=== PATIENT | male | born 1975 | race Caucasian/White ===

== ENCOUNTER 2017-04-29 11:20 | Inpatient (IN) | payer OTHER ==
[2017-04-29 11:27] VITALS: BMI 24.6
--- NOTE | 2017-04-29 14:05 | HP ---
Admission [facility] Chief Complaint: 41 yr old man with hx of bipolar d/o, depression, PTSD, seizure d/o(tonic clonic , last seizure 1 month ago), etoh and cocaine use disorder presents for rehabilitation. Allergies/Adverse Reactions: Allergies Allergy/AdvReac Type Severity Reaction Status Date / Time Penicillins AdvReac Severe Swelling Verified 04/29/17 13:22 History of Present Illness: Wants to change his life around, has a 15-yr old son in [place] who he came to visit. his son recently had a child as well. was recently detoxed in [facility] but relapsed once discharged, last alcohol drink was 2AM Thursday morning. had epilepsy as a child, was taken off phenobarbital at that age. seizures started again at age 39, started on gabapentin. has seizures on and off alcohol, no relation to withdrawal. contracted Hep C through intercourse, several years ago, has not been able to receive treatment because he needed to stay sober at least 6mo to receive treatment Exam Limitations: No Limitations - Ebola screening Have you traveled outside of the country in the last 21 days: No Have you had contact with anyone from an Ebola affected area: No Have you been sick,other than usual withdrawal symptoms: No Do you have a fever: No - Review of Systems Constitutional: Unexplained wgt Loss (lost 70lbs during the last year) EENT: reports: Dental Problems, Other (jaw pain due b/l factures). denies: Difficulty Swallowing Respiratory: reports: Productive cough (chronic). denies: Shortness of Breath, Wheezing Cardiac: reports: No Symptoms Reported. denies: Chest Pain, Lightheadedness, Palpitations GI: reports: Diarrhea (last episode yesterday, nonbloody). denies: Vomiting : reports: No Symptoms Reported Musculoskeletal: reports: No Symptoms Reported Integumentary: reports: Erythema Neuro: reports: Seizure Hematology: reports: No Symptoms Reported Psychiatric: reports: Judgement Intact, Orientated x3, Depressed Patient History - Patient Medical History Hx Asthma: No Hx Chronic Obstructive Pulmonary Disease (COPD): No Hx Cardiac Disorders: No Hx Hypertension: No Hx Seizures: Yes (tonic clonic) Hx Diabetes: No Hx Gastrointestinal Disorders: No Hx Genitourinary Disorders: No Hx Sexually Transmitted Disorders: Yes (CHLAMYDIA twice AT AGE 19, says he was treated) Hx Renal Disease (ESRD): No Hx Hepatitis C: Yes Hx Depression: Yes Hx Suicide Attempt: No Hx Schizophrenia: No - Patient Surgical History Past Surgical History: Yes Hx Neurologic Surgery: No Hx Cataract Extraction: No Hx Cardiac Surgery: No Hx Lung Surgery: No Hx Breast Surgery: No Hx Breast Biopsy: No Hx Abdominal Surgery: No Hx Appendectomy: No Hx Cholecystectomy: No Hx Genitourinary Surgery: No Hx Section: No Hx Orthopedic Surgery: Yes (DONATED RT KIDNEY) Anesthesia Reaction: No - PPD History Previous Implant?: Yes Documented Results: Negative w/o proof Implanted On Prior [facility] Admission?: No - Smoking Cessation Smoking history: Current every day smoker Have you smoked in the past 12 months: Yes Aproximately how many cigarettes per day: 50 Hx Chewing Tobacco Use: No Initiated information on smoking cessation: Yes 'Breaking Loose' booklet given: 04/29/17 - Substance & Tx. History Hx Alcohol Use: Yes Hx Substance Use: Yes Substance Use Type: Alcohol, Cocaine Hx Substance Use Treatment: Yes ([facility]) - Substances Abused Alcohol Route: Oral Frequency: Daily Amount used: 1/2 gal of vodka Age of first use: 13 Date of Last Use: 04/29/17 Cocaine Route: Inhalation Frequency: 1-3 times last 30 days Amount used: 1 bag Age of first use: 39 Date of Last Use: 04/28/17 Marijuana/Hashish Route: Smoking Frequency: 1-2 times per week Amount used: $30 Age of first use: 13 Date of Last Use: 04/22/17 Family Disease History - Family Disease History Family Disease History: Diabetes: Grandparent (maternal grandmother), Other: Father (alcohol use), Mother (alcohol use), Son (15yr with polysubstance use) Other Family History: aunts and uncles on both sides of family with alcohol use Admission Physical Exam [facility] - Vital Signs Vital Signs: Vital Signs - 24 hr 04/29/17 11:26 Temperature 98.7 F Pulse Rate 73 Respiratory 18 Rate Blood Pressure 111/63 - Physical General Appearance: Yes: No Apparent Distress HEENTM: Yes: EOMI, Normocephalic, Other (left eye nonreactive to light has 250 vision(legally blind) but is reactive consensually, right eye reactive to light normally. poor dentition and oral hygiene). No: Pharyngeal Erythemia, Tonsilar Exudate, Thrush Respiratory: Yes: Chest Non-Tender, Lungs Clear Neck: Yes: No masses,lesions,Nodules Breast: Yes: Breast Exam Deferred Cardiology: Yes: Regular Rhythm, Regular Rate, S1, S2 Abdominal: Yes: Normal Bowel Sounds, Non Tender, Soft Genitourinary: No: Burning, Hematuria, Penial Discharge Back: No: CVA Tenderness Musculoskeletal: Yes: Gait Steady Extremities: Yes: Other (b/l 1+ pitting edema in lower legs). No: Calf Tenderness Neurological: Yes: Fully Oriented, Motor Strength 5/5 Integumentary: Yes: Other (right hand with healing abrasions in 3rd digit knuckle) - Diagnostic (1) Alcohol dependence Current Visit: Yes Status: Acute (2) Cocaine abuse Current Visit: Yes Status: Acute (3) Nicotine dependence Current Visit: Yes Status: Acute (4) Epilepsy Current Visit: Yes Status: Acute Cleared for Admission [facility] - Detox or Rehab Claeared for Rehab Admission: Yes [facility] Breath Alcohol Content Breath Alcohol Content: 0.020 Urine Drug Screen - Results Drug Screen Negative: No Urine Drug Screen Results: MAURO-Cocaine, BZO-Benzodiazepines Inpatient Rehab Admission - Initial Determination Are CD services needed?: Yes Free of communicable disease: Yes Not in need of hospitalization: Yes - Rehab Admission Criteria Previous failed treatment: Yes Poor recovery environment: Yes Comorbidities: Yes Lacks judgement: No Patient is meeting Inpatient Rehab admission criteria:: Yes
[2017-04-29] MEDS ORDERED: P-EPHED 60MG/TRIPROLIDI 2.5MG TABLET PO PRN (14:11)
[2017-04-29] MEDS ORDERED: ACETAMINOPHEN 325 MG TABLET (FP) PO PRN (14:11)
[2017-04-29] MEDS ORDERED: MAG HYDROX/AL HYDROX/SIMETH 30 ML UNIT-DOSE CUP PO PRN (14:11)
[2017-04-29] MEDS ORDERED: MAGNESIUM CITRATE 300 ML BOTTLE PO PRN (14:11)
[2017-04-29 17:09] LABS: HEMATOCRIT 34.6 % (35.4-49); HEMOGLOBIN 11.5 GM/dL (11.7-16.9); MCH 32.7 pg (25.7-33.7); MCHC 33.2 g/dl (32.0-35.9); MEAN CELL VOLUME 98.4 fl (80-96); MEAN PLT VOLUME 7.9 fl (7.5-11.1); PLATELET COUNT 376 K/MM3 (134-434); RBC 3.52 M/mm3 (4.00-5.60); RDW 13.9 % (11.9-15.9); WHITE BLOOD COUNT 7.9 K/mm3 (4.0-10.0)
[2017-04-29 17:21] LABS: URINE APPEARANCE SLCLOUDY; URINE BILIRUBIN NEGATIVE (NEGATIVE); URINE BLOOD 2+ (NEGATIVE); URINE COLOR AMBER; URINE GLUCOSE (UA) NEGATIVE (NEGATIVE); URINE KETONE NEGATIVE (NEGATIVE); URINE LEUK ESTERASE TRACE (NEGATIVE); URINE NITRITE NEGATIVE (NEGATIVE); URINE UROBILINOGEN NEGATIVE mg/dL (0.2-1.0)
[2017-04-29 17:25] LABS: URINE PROTEIN 2+ (NEGATIVE)
[2017-04-29 17:30] LABS: CHLORIDE 104 mmol/L (98-107); POTASSIUM 4.6 mmol/L (3.5-5.1); SODIUM 136 mmol/L (136-145)
[2017-04-29 17:43] LABS: ALBUMIN 3.3 g/dl (3.4-5.0); ALK PHOS 120 U/L (45-117); ANION GAP 6 (8-16); BILIRUBIN,TOTAL 0.4 mg/dL (0.2-1.0); BLOOD UREA NITROGEN 21 mg/dL (7-18); CALCIUM 8.9 mg/dL (8.5-10.1); CO2 26 mmol/L (21-32); CREATININE 1.1 mg/dL (0.7-1.3); GLUCOSE,RANDOM 90 mg/dL (74-106); SGOT/AST 232 U/L (15-37); TOT PROT 8.6 g/dl (6.4-8.2)
[2017-04-29 18:37] LABS: SGPT/ALT 469 U/L (12-78)
[2017-04-29] MEDS ORDERED: MAGNESIUM HYDROX 2400MG/30ML ORAL SUSPENSION 30 ML CUP PO PRN (18:57)
[2017-04-29] MEDS: THIAMINE HCL 100 MG TABLET (FP) PO SCH (21:55)
[2017-04-29] MEDS: GABAPENTIN 300 MG CAPSULE (FP) PO SCH (21:55)
[2017-04-29] MEDS: traZODone HCL 100 MG TABLET (FP) PO SCH (21:55)
[2017-04-29] MEDS: NICOTINE 21 MG/24 HOURS TOPICAL PATCH TD SCH (21:56)
[2017-04-29 21:59] LABS: EPI CELLS RARE /HPF (FEW); GRANULAR CASTS 5 /lpf; URINE MUCUS FEW
[2017-04-29] MEDS: CHLORHEXIDINE GLUCONATE 0.12% 15ML CUP PO SCH (22:32)
[2017-04-30] MEDS: GABAPENTIN 300 MG CAPSULE (FP) PO SCH ×3 (06:22→21:40)
[2017-04-30] MEDS: IBUPROFEN 400 MG TABLET (FP) PO PRN ×2 (06:23→13:45)
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
[2017-04-30] MEDS: NICOTINE 21 MG/24 HOURS TOPICAL PATCH TD SCH (10:53)
[2017-04-30] MEDS: PRENATAL VITAMINS W/ FOLIC ACID TABLET (FP) PO SCH (10:53)
[2017-04-30] MEDS: CHLORHEXIDINE GLUCONATE 0.12% 15ML CUP PO SCH ×2 (10:53→21:40)
[2017-04-30] MEDS ORDERED: PNEUMOCOCCAL 23 VACCINE 0.5 ML VIAL IM ONE (12:00)
[2017-04-30] MEDS ORDERED: PNEUMOC 13-VAL CONJ-DIP CRM/PF 0.5 ML DISP.SYRIN IM ONE (12:00)
[2017-04-30] MEDS ORDERED: FLU VACCINE QUAD 60 MCG/0.5 ML (MDV 17-18) IM ONE (12:00)
--- NOTE | 2017-04-30 13:09 | EKG ---
Test Reason : Blood Pressure : / mmHG Vent. Rate : 085 BPM Atrial Rate : 085 BPM P-R Int : 158 ms QRS Dur : 108 ms QT Int : 392 ms P-R-T Axes : 077 075 061 degrees QTc Int : 466 ms NORMAL SINUS RHYTHM POSSIBLE LEFT ATRIAL ENLARGEMENT BORDERLINE ECG NO PREVIOUS ECGS AVAILABLE Confirmed by JEANE COLLIER, MIHAI ([id number]) on 04/30/2017 1:09:39 PM Referred By: Confirmed By:MIHAI CHING MD
[2017-04-30] MEDS: NICOTINE POLACRILEX 4 MG GUM BUC PRN ×3 (13:46→21:41)
[2017-04-30] MEDS: THIAMINE HCL 100 MG TABLET (FP) PO SCH (21:40)
[2017-04-30] MEDS: traZODone HCL 100 MG TABLET (FP) PO SCH (21:40)
[2017-05-01] MEDS: GABAPENTIN 300 MG CAPSULE (FP) PO SCH ×3 (06:25→21:24)
[2017-05-01] MEDS: IBUPROFEN 400 MG TABLET (FP) PO PRN (06:26)
[2017-05-01] MEDS: NICOTINE POLACRILEX 4 MG GUM BUC PRN ×5 (06:29→21:25)
[2017-05-01] MEDS: NICOTINE 21 MG/24 HOURS TOPICAL PATCH TD SCH (09:44)
[2017-05-01] MEDS: PRENATAL VITAMINS W/ FOLIC ACID TABLET (FP) PO SCH (09:44)
[2017-05-01] MEDS: CHLORHEXIDINE GLUCONATE 0.12% 15ML CUP PO SCH ×2 (09:45→21:23)
--- NOTE | 2017-05-01 15:22 | PN ---
Psychiatric Progress Note Vital Signs: Vital Signs Period Temp Pulse Resp BP Sys/Salazar Pulse Ox Last 24 Hr 98.5 F 61 16-18 117/71 Date of Session: 05/01/17 Chief Complaint:: Insomnia HPI: Patient addressing Alcohol, Cannabis Dependence and Cocaine Abuse comorbid with Nicotine Dependence, Posttraumatic Stress Disorder and Substance-induced Mood Disorder ROS: Seizure Disorder, Hep C Current Medications: Active Medications Generic Name Dose Route Start Last Admin Trade Name Freq PRN Reason Stop Dose Admin Al Hydroxide/Mg Hydroxide 30 ml 04/29/17 14:11 Mylanta Oral Suspension - PO Q6H PRN DYSPEPSIA Chlorhexidine Gluconate 15 ml 04/29/17 22:00 05/01/17 09:45 Peridex - PO 15 ml BID UNA Administration Eucalyptus/Menthol/Phenol/Sorbitol 1 each 04/29/17 14:11 Cepastat Lozenge - MM Q4H PRN SORE THROAT Gabapentin 600 mg 04/29/17 22:00 05/01/17 13:30 Neurontin - PO 600 mg TID UNA Administration Guaifenesin 10 ml 04/29/17 14:11 Robitussin Dm - PO Q6H PRN COUGH Lactic Acid 1 applic 05/01/17 15:13 Lac-Hydrin 12 TP BID PRN DRY SKIN Loperamide HCl 4 mg 04/29/17 14:11 Imodium - PO Q6H PRN DIARRHEA Magnesium Citrate 300 ml 04/29/17 14:11 Citroma - PO Q48H PRN CONSTIPATION Magnesium Hydroxide 30 ml 04/29/17 18:57 Milk Of Magnesia - PO DAILY PRN CONSTIPATION Naproxen 500 mg 05/01/17 22:00 Naprosyn - PO BID UNA Nicotine 21 mg 04/29/17 10:00 05/01/17 09:44 Nicoderm Patch - TD 21 mg DAILY UNA Administration Nicotine Polacrilex 4 mg 04/29/17 14:11 05/01/17 13:31 Nicorette Gum - BUC 4 mg Q2H PRN Administration NICOTINE REPLACEMENT RX Pantoprazole Sodium 40 mg 05/02/17 10:00 Protonix - PO DAILY UNA Multivit/Folic Acid/Iron 1 tab 04/30/17 10:00 05/01/17 09:44 Vitamins (Sjr) - PO 1 tab DAILY UNA Administration Pseudoephedrine/Triprolidine 1 combo 04/29/17 14:11 Actifed - PO TID PRN NASAL CONGESTION Thiamine HCl 100 mg 04/29/17 22:00 04/30/17 21:40 Vitamin B1 - PO 100 mg HS UNA Administration Trazodone HCl 150 mg 05/01/17 22:00 Desyrel - PO HS [facility] Medication(s) Change(s): Increase dosage of Trazadone to 150 mg po HS Current Side Effect: No Lab tests ordered: Yes Lab tests reviewed: Yes Provider note:: Patient reports experiencing difficulty to sleep. Told job specification writer that he has been sleeping poorly despite taking Seroquel 100 mg po HS. Requests to be ordered a higher dosage Total face to face time:: 15 Mental Status Exam - Mental Status Exam Alert and Oriented to: Time, Place, Person Cognitive Function: Fair Patient Appearance: Well Groomed Mood: Hopeful, Euthymic Affect: Appropriate Patient Behavior: Cooperative Speech Pattern: Clear Voice Loudness: Normal Thought Process: Intact, Goal Oriented Thought Disorder: Not Present Hallucinations: Denies Suicidal Ideation: Denies Homicidal Ideation: Denies Insight/Judgement: Fair Sleep: Poorly Appetite: Good Muscle strength/Tone: Normal Gait/Station: Normal Psychiatric Treatment Plan - Problem List (1) Alcohol dependence Current Visit: Yes (2) Cannabis dependence Current Visit: Yes (3) Cocaine abuse Current Visit: Yes (4) Nicotine dependence Current Visit: Yes (5) PTSD (post-traumatic stress disorder) Current Visit: Yes (6) Substance induced mood disorder Current Visit: Yes (7) Bipolar disorder Current Visit: Yes (8) Epilepsy Current Visit: Yes (9) Hepatitis C Current Visit: Yes Initial treatment plan: 1) Discontinue Trazdone 100 mg po HS. 2) Start Trazadone 150 mg po HS. 3) Monitor progress
[2017-05-01] MEDS: LOPERAMIDE HCL 2 MG CAPSULE PO PRN (19:19)
[2017-05-01] MEDS: NAPROXEN 500 MG TABLET (FP) PO SCH (21:23)
[2017-05-01] MEDS: traZODone HCL 50 MG TABLET (FP) PO SCH (21:23)
[2017-05-01] MEDS: THIAMINE HCL 100 MG TABLET (FP) PO SCH (22:44)
[2017-05-02] MEDS: LOPERAMIDE HCL 2 MG CAPSULE PO PRN ×2 (01:16→09:44)
[2017-05-02] MEDS: GABAPENTIN 300 MG CAPSULE (FP) PO SCH ×3 (06:28→21:06)
[2017-05-02] MEDS: MENTHOL/PHENOL 1 EACH UD MM PRN ×2 (06:30→18:03)
[2017-05-02] MEDS: NICOTINE 21 MG/24 HOURS TOPICAL PATCH TD SCH (09:43)
[2017-05-02] MEDS: PRENATAL VITAMINS W/ FOLIC ACID TABLET (FP) PO SCH (09:43)
[2017-05-02] MEDS: CHLORHEXIDINE GLUCONATE 0.12% 15ML CUP PO SCH ×2 (09:43→21:06)
[2017-05-02] MEDS: NAPROXEN 500 MG TABLET (FP) PO SCH ×2 (09:43→21:06)
[2017-05-02] MEDS: PANTOPRAZOLE 40 MG TABLET (FP) PO SCH (09:43)
--- NOTE | 2017-05-02 14:14 | PN ---
BHS Progress Note (SOAP) Subjective: Pt. reports that he had an abscess in left axilla that was I&D at [facility], he never picked up his antibiotics. Objective: 05/02/17 14:11 Vital Signs - 8 hr 05/02/17 05/02/17 07:18 14:04 Temperature 98.4 F 100.6 F H Pulse Rate 59 L Respiratory 17 Rate Blood Pressure 102/56 Ext : slight drainage from left axilla is present Assessment: 05/02/17 14:14 S/P I&D of left axilla Plan: Bactrim DS BID Bacitracin oin't BID
[2017-05-02] MEDS ORDERED: SULFAMETHOXAZOLE/TRIMETHOPRIM 800MG/160MG D.S. TABLET PO ONE (14:15)
[2017-05-02] MEDS: ASPIRIN 325 MG ENTERIC COATED TABLET (FP) PO PRN ×2 (14:35→18:35)
[2017-05-02] MEDS: guaiFENesin/D-METHORPHAN HB 10 ML UNIT-DOSE CUPS PO PRN (18:03)
[2017-05-02] MEDS: NICOTINE POLACRILEX 4 MG GUM BUC PRN (20:23)
[2017-05-02] MEDS: SULFAMETHOXAZOLE/TRIMETHOPRIM 800MG/160MG D.S. TABLET PO SCH (21:05)
[2017-05-02] MEDS: THIAMINE HCL 100 MG TABLET (FP) PO SCH (21:06)
[2017-05-02] MEDS: BACITRACIN 0.9 GM PACKET TP SCH (21:06)
[2017-05-02] MEDS: traZODone HCL 50 MG TABLET (FP) PO SCH (21:06)
[2017-05-03] MEDS: NICOTINE POLACRILEX 4 MG GUM BUC PRN ×4 (00:04→22:48)
[2017-05-03] MEDS: GABAPENTIN 300 MG CAPSULE (FP) PO SCH ×3 (06:46→21:54)
[2017-05-03] MEDS: ASPIRIN 325 MG ENTERIC COATED TABLET (FP) PO PRN (06:46)
[2017-05-03] MEDS: MENTHOL/PHENOL 1 EACH UD MM PRN ×2 (06:48→09:52)
[2017-05-03] MEDS: NICOTINE 21 MG/24 HOURS TOPICAL PATCH TD SCH (09:49)
[2017-05-03] MEDS: NAPROXEN 500 MG TABLET (FP) PO SCH ×2 (09:49→21:53)
[2017-05-03] MEDS: SULFAMETHOXAZOLE/TRIMETHOPRIM 800MG/160MG D.S. TABLET PO SCH ×2 (09:49→21:53)
[2017-05-03] MEDS: BACITRACIN 0.9 GM PACKET TP SCH ×3 (09:49→21:59)
[2017-05-03] MEDS: CHLORHEXIDINE GLUCONATE 0.12% 15ML CUP PO SCH ×2 (09:49→21:53)
[2017-05-03] MEDS: PANTOPRAZOLE 40 MG TABLET (FP) PO SCH (09:49)
[2017-05-03] MEDS: PRENATAL VITAMINS W/ FOLIC ACID TABLET (FP) PO SCH (09:51)
[2017-05-03 10:05] LABS: BASO % 0.6 % (0-2.0); EOS % 4.9 % (0-4.5); HEMATOCRIT 34.3 % (35.4-49); HEMOGLOBIN 11.2 GM/dL (11.7-16.9); MCH 32.4 pg (25.7-33.7); MCHC 32.8 g/dl (32.0-35.9); MEAN CELL VOLUME 98.8 fl (80-96); MONO % 17.8 % (3.8-10.2); NEUT % 51.7 % (42.8-82.8); PLATELET COUNT 308 K/MM3 (134-434); RBC 3.47 M/mm3 (4.00-5.60); RDW 14.7 % (11.9-15.9); WHITE BLOOD COUNT 7.1 K/mm3 (4.0-10.0)
[2017-05-03 10:20] LABS: INR 1.04 (0.82-1.09); PROTHROMBIN TIME (PATIENT) 11.8 SEC (9.98-11.88)
[2017-05-03 10:27] LABS: SGOT/AST 100 U/L (15-37); SGPT/ALT 285 U/L (12-78)
[2017-05-03 10:29] LABS: ALK PHOS 98 U/L (45-117)
[2017-05-03] MEDS: AMMONIUM LACTATE 12% LOTION 225 GM BOTTLE TP PRN (14:09)
[2017-05-03] MEDS: traZODone HCL 50 MG TABLET (FP) PO SCH (21:53)
[2017-05-03] MEDS: THIAMINE HCL 100 MG TABLET (FP) PO SCH (21:53)
[2017-05-03] MEDS ORDERED: BACITRACIN 0.9 GM PACKET ONE (21:56)
[2017-05-04] MEDS: GABAPENTIN 300 MG CAPSULE (FP) PO SCH ×3 (06:02→21:56)
[2017-05-04] MEDS: MENTHOL/PHENOL 1 EACH UD MM PRN (06:04)
[2017-05-04] MEDS: NICOTINE POLACRILEX 4 MG GUM BUC PRN ×2 (06:04→10:18)
[2017-05-04] MEDS: BACITRACIN 0.9 GM PACKET TP SCH ×2 (10:16→21:56)
[2017-05-04] MEDS: PRENATAL VITAMINS W/ FOLIC ACID TABLET (FP) PO SCH (10:16)
[2017-05-04] MEDS: SULFAMETHOXAZOLE/TRIMETHOPRIM 800MG/160MG D.S. TABLET PO SCH ×2 (10:16→21:56)
[2017-05-04] MEDS: PANTOPRAZOLE 40 MG TABLET (FP) PO SCH (10:16)
[2017-05-04] MEDS: CHLORHEXIDINE GLUCONATE 0.12% 15ML CUP PO SCH ×2 (10:16→21:56)
[2017-05-04] MEDS: NICOTINE 21 MG/24 HOURS TOPICAL PATCH TD SCH (10:16)
[2017-05-04] MEDS: NAPROXEN 500 MG TABLET (FP) PO SCH ×2 (10:16→21:56)
[2017-05-04] MEDS: traZODone HCL 50 MG TABLET (FP) PO SCH (21:56)
[2017-05-04] MEDS: THIAMINE HCL 100 MG TABLET (FP) PO SCH (21:56)
[2017-05-05] MEDS: GABAPENTIN 300 MG CAPSULE (FP) PO SCH ×3 (06:28→21:41)
[2017-05-05] MEDS: MENTHOL/PHENOL 1 EACH UD MM PRN (06:29)
[2017-05-05] MEDS: NAPROXEN 500 MG TABLET (FP) PO SCH ×2 (10:05→21:41)
[2017-05-05] MEDS: PANTOPRAZOLE 40 MG TABLET (FP) PO SCH (10:05)
[2017-05-05] MEDS: SULFAMETHOXAZOLE/TRIMETHOPRIM 800MG/160MG D.S. TABLET PO SCH ×2 (10:05→21:42)
[2017-05-05] MEDS: NICOTINE 21 MG/24 HOURS TOPICAL PATCH TD SCH (10:05)
[2017-05-05] MEDS: PRENATAL VITAMINS W/ FOLIC ACID TABLET (FP) PO SCH (10:05)
[2017-05-05] MEDS: BACITRACIN 0.9 GM PACKET TP SCH ×2 (10:05→21:42)
[2017-05-05] MEDS: CHLORHEXIDINE GLUCONATE 0.12% 15ML CUP PO SCH ×2 (10:06→21:42)
[2017-05-05] MEDS: NICOTINE POLACRILEX 4 MG GUM BUC PRN ×3 (10:06→21:44)
[2017-05-05] MEDS: SODIUM CHLORIDE NASAL SPRAY 44 ML BOTTLE NS PRN (21:39)
[2017-05-05] MEDS: THIAMINE HCL 100 MG TABLET (FP) PO SCH (21:41)
[2017-05-05] MEDS: traZODone HCL 50 MG TABLET (FP) PO SCH (21:41)
[2017-05-06] MEDS: NICOTINE POLACRILEX 4 MG GUM BUC PRN ×3 (06:32→14:38)
[2017-05-06] MEDS: GABAPENTIN 300 MG CAPSULE (FP) PO SCH ×3 (06:32→21:18)
[2017-05-06] MEDS: guaiFENesin/D-METHORPHAN HB 10 ML UNIT-DOSE CUPS PO PRN ×2 (06:34→21:18)
[2017-05-06] MEDS: BACITRACIN 0.9 GM PACKET TP SCH ×2 (09:58→21:17)
[2017-05-06] MEDS: NAPROXEN 500 MG TABLET (FP) PO SCH ×2 (09:58→21:18)
[2017-05-06] MEDS: CHLORHEXIDINE GLUCONATE 0.12% 15ML CUP PO SCH ×2 (09:58→21:20)
[2017-05-06] MEDS: SULFAMETHOXAZOLE/TRIMETHOPRIM 800MG/160MG D.S. TABLET PO SCH ×2 (09:58→21:18)
[2017-05-06] MEDS: NICOTINE 21 MG/24 HOURS TOPICAL PATCH TD SCH (09:58)
[2017-05-06] MEDS: PANTOPRAZOLE 40 MG TABLET (FP) PO SCH (09:58)
[2017-05-06] MEDS: PRENATAL VITAMINS W/ FOLIC ACID TABLET (FP) PO SCH (09:58)
[2017-05-06] MEDS: MENTHOL/PHENOL 1 EACH UD MM PRN (10:01)
[2017-05-06] MEDS: SODIUM CHLORIDE NASAL SPRAY 44 ML BOTTLE NS PRN (21:17)
[2017-05-06] MEDS: traZODone HCL 50 MG TABLET (FP) PO SCH (21:18)
[2017-05-06] MEDS: THIAMINE HCL 100 MG TABLET (FP) PO SCH (21:18)
[2017-05-07] MEDS: GABAPENTIN 300 MG CAPSULE (FP) PO SCH ×3 (06:25→21:21)
[2017-05-07] MEDS: MENTHOL/PHENOL 1 EACH UD MM PRN ×2 (06:27→21:22)
[2017-05-07] MEDS: NICOTINE POLACRILEX 4 MG GUM BUC PRN ×4 (06:27→21:22)
[2017-05-07] MEDS: PRENATAL VITAMINS W/ FOLIC ACID TABLET (FP) PO SCH (10:20)
[2017-05-07] MEDS: SULFAMETHOXAZOLE/TRIMETHOPRIM 800MG/160MG D.S. TABLET PO SCH ×2 (10:20→21:20)
[2017-05-07] MEDS: NAPROXEN 500 MG TABLET (FP) PO SCH ×2 (10:20→21:21)
[2017-05-07] MEDS: NICOTINE 21 MG/24 HOURS TOPICAL PATCH TD SCH (10:21)
[2017-05-07] MEDS: BACITRACIN 0.9 GM PACKET TP SCH ×2 (10:21→21:20)
[2017-05-07] MEDS: PANTOPRAZOLE 40 MG TABLET (FP) PO SCH (10:21)
[2017-05-07] MEDS: CHLORHEXIDINE GLUCONATE 0.12% 15ML CUP PO SCH ×2 (11:00→21:21)
[2017-05-07] MEDS ORDERED: PT OWN MED DRAWER 7, Y5N ONE (19:06)
[2017-05-07] MEDS: traZODone HCL 50 MG TABLET (FP) PO SCH (21:20)
[2017-05-07] MEDS: THIAMINE HCL 100 MG TABLET (FP) PO SCH (21:21)
[2017-05-07] MEDS: SODIUM CHLORIDE NASAL SPRAY 44 ML BOTTLE NS PRN (21:23)
[2017-05-08] MEDS: GABAPENTIN 300 MG CAPSULE (FP) PO SCH ×3 (05:58→21:06)
[2017-05-08] MEDS: PANTOPRAZOLE 40 MG TABLET (FP) PO SCH (09:38)
[2017-05-08] MEDS: NICOTINE 21 MG/24 HOURS TOPICAL PATCH TD SCH (09:38)
[2017-05-08] MEDS: PRENATAL VITAMINS W/ FOLIC ACID TABLET (FP) PO SCH (09:38)
[2017-05-08] MEDS: NAPROXEN 500 MG TABLET (FP) PO SCH ×2 (09:38→21:06)
[2017-05-08] MEDS: BACITRACIN 0.9 GM PACKET TP SCH ×2 (09:38→21:05)
[2017-05-08] MEDS: SULFAMETHOXAZOLE/TRIMETHOPRIM 800MG/160MG D.S. TABLET PO SCH ×2 (09:38→21:05)
[2017-05-08] MEDS: CHLORHEXIDINE GLUCONATE 0.12% 15ML CUP PO SCH ×2 (09:39→21:08)
[2017-05-08] MEDS: SODIUM CHLORIDE NASAL SPRAY 44 ML BOTTLE NS PRN ×2 (09:40→21:07)
[2017-05-08] MEDS: NICOTINE POLACRILEX 4 MG GUM BUC PRN ×2 (14:42→21:08)
[2017-05-08] MEDS: MENTHOL/PHENOL 1 EACH UD MM PRN (14:45)
[2017-05-08] MEDS: traZODone HCL 50 MG TABLET (FP) PO SCH (21:05)
[2017-05-08] MEDS: THIAMINE HCL 100 MG TABLET (FP) PO SCH (21:05)
[2017-05-08] MEDS: guaiFENesin/D-METHORPHAN HB 10 ML UNIT-DOSE CUPS PO PRN (21:07)
[2017-05-09] MEDS: GABAPENTIN 300 MG CAPSULE (FP) PO SCH ×3 (06:09→21:19)
[2017-05-09] MEDS: PRENATAL VITAMINS W/ FOLIC ACID TABLET (FP) PO SCH (09:36)
[2017-05-09] MEDS: BACITRACIN 0.9 GM PACKET TP SCH ×2 (09:37→21:18)
[2017-05-09] MEDS: NICOTINE 21 MG/24 HOURS TOPICAL PATCH TD SCH (09:37)
[2017-05-09] MEDS: PANTOPRAZOLE 40 MG TABLET (FP) PO SCH (09:37)
[2017-05-09] MEDS: SULFAMETHOXAZOLE/TRIMETHOPRIM 800MG/160MG D.S. TABLET PO SCH (09:37)
[2017-05-09] MEDS: NAPROXEN 500 MG TABLET (FP) PO SCH ×2 (09:37→21:19)
[2017-05-09] MEDS: SODIUM CHLORIDE NASAL SPRAY 44 ML BOTTLE NS PRN (09:38)
[2017-05-09] MEDS: CHLORHEXIDINE GLUCONATE 0.12% 15ML CUP PO SCH ×2 (09:38→21:21)
[2017-05-09] MEDS: NICOTINE POLACRILEX 4 MG GUM BUC PRN ×2 (09:39→21:21)
[2017-05-09] MEDS: MENTHOL/PHENOL 1 EACH UD MM PRN (09:40)
[2017-05-09] MEDS: THIAMINE HCL 100 MG TABLET (FP) PO SCH (21:18)
[2017-05-09] MEDS: traZODone HCL 50 MG TABLET (FP) PO SCH (21:19)
[2017-05-09] MEDS: guaiFENesin/D-METHORPHAN HB 10 ML UNIT-DOSE CUPS PO PRN (21:20)
[2017-05-10] MEDS: GABAPENTIN 300 MG CAPSULE (FP) PO SCH ×3 (06:37→21:37)
[2017-05-10] MEDS: BACITRACIN 0.9 GM PACKET TP SCH ×2 (09:35→21:36)
[2017-05-10] MEDS: PRENATAL VITAMINS W/ FOLIC ACID TABLET (FP) PO SCH (09:35)
[2017-05-10] MEDS: NICOTINE 21 MG/24 HOURS TOPICAL PATCH TD SCH (09:35)
[2017-05-10] MEDS: SODIUM CHLORIDE NASAL SPRAY 44 ML BOTTLE NS PRN ×2 (09:35→21:38)
[2017-05-10] MEDS: NAPROXEN 500 MG TABLET (FP) PO SCH ×2 (09:35→21:36)
[2017-05-10] MEDS: PANTOPRAZOLE 40 MG TABLET (FP) PO SCH (09:35)
[2017-05-10] MEDS: NICOTINE POLACRILEX 4 MG GUM BUC PRN ×3 (09:37→21:38)
[2017-05-10] MEDS: MENTHOL/PHENOL 1 EACH UD MM PRN (09:37)
[2017-05-10] MEDS: CHLORHEXIDINE GLUCONATE 0.12% 15ML CUP PO SCH ×2 (09:38→21:38)
[2017-05-10] MEDS: traZODone HCL 50 MG TABLET (FP) PO SCH (21:36)
[2017-05-10] MEDS: THIAMINE HCL 100 MG TABLET (FP) PO SCH (21:36)
[2017-05-11] MEDS: GABAPENTIN 300 MG CAPSULE (FP) PO SCH ×3 (06:23→21:26)
[2017-05-11] MEDS: NICOTINE POLACRILEX 4 MG GUM BUC PRN ×3 (06:24→21:27)
[2017-05-11] MEDS: MENTHOL/PHENOL 1 EACH UD MM PRN (06:24)
--- NOTE | 2017-05-11 09:22 | PN ---
Psychiatric Progress Note Vital Signs: Vital Signs Period Temp Pulse Resp BP Sys/Salazar Pulse Ox Last 24 Hr 98.1 F 65 18-18 103/65 ROS: HTN, PPD+ Current Medications: Active Medications Generic Name Dose Route Start Last Admin Trade Name Freq PRN Reason Stop Dose Admin Al Hydroxide/Mg Hydroxide 30 ml 04/29/17 14:11 05/02/17 06:29 Mylanta Oral Suspension - PO 30 ml Q6H PRN Administration DYSPEPSIA Aspirin 325 mg 05/02/17 14:15 05/03/17 06:46 Ecotrin - PO 325 mg Q4H PRN Administration FEVER Bacitracin 0.9 gm 05/03/17 21:55 05/10/17 21:36 Bacitracin - TP 0.9 gm BID UNA Administration Chlorhexidine Gluconate 15 ml 04/29/17 22:00 05/10/17 21:38 Peridex - PO 15 ml BID UNA Administration Eucalyptus/Menthol/Phenol/Sorbitol 1 each 04/29/17 14:11 05/11/17 06:24 Cepastat Lozenge - MM 1 each Q4H PRN Administration SORE THROAT Gabapentin 600 mg 04/29/17 22:00 05/11/17 06:23 Neurontin - PO 600 mg TID UNA Administration Guaifenesin 10 ml 04/29/17 14:11 05/09/17 21:20 Robitussin Dm - PO 10 ml Q6H PRN Administration COUGH Lactic Acid 1 applic 05/01/17 15:13 05/03/17 14:09 Lac-Hydrin 12 TP 1 applic BID PRN Administration DRY SKIN Loperamide HCl 4 mg 04/29/17 14:11 05/02/17 09:44 Imodium - PO 4 mg Q6H PRN Administration DIARRHEA Magnesium Citrate 300 ml 04/29/17 14:11 Citroma - PO Q48H PRN CONSTIPATION Magnesium Hydroxide 30 ml 04/29/17 18:57 Milk Of Magnesia - PO DAILY PRN CONSTIPATION Naproxen 500 mg 05/01/17 22:00 05/10/17 21:36 Naprosyn - PO 500 mg BID UNA Administration Nicotine 21 mg 04/29/17 10:00 05/10/17 09:35 Nicoderm Patch - TD 21 mg DAILY UNA Administration Nicotine Polacrilex 4 mg 04/29/17 14:11 05/11/17 06:24 Nicorette Gum - BUC 4 mg Q2H PRN Administration NICOTINE REPLACEMENT RX Pantoprazole Sodium 40 mg 05/02/17 10:00 05/10/17 09:35 Protonix - PO 40 mg DAILY UNA Administration Multivit/Folic Acid/Iron 1 tab 04/30/17 10:00 05/10/17 09:35 Vitamins (Sjr) - PO 1 tab DAILY UNA Administration Pseudoephedrine/Triprolidine 1 combo 04/29/17 14:11 Actifed - PO TID PRN NASAL CONGESTION Sodium Chloride 2 spray 05/05/17 13:29 05/10/17 21:38 [place] Nasal [place] - NS 2 spray BID PRN Administration NASAL CONGESTION Thiamine HCl 100 mg 04/29/17 22:00 05/10/17 21:36 Vitamin B1 - PO 100 mg HS UNA Administration Trazodone HCl 150 mg 05/01/17 22:00 05/10/17 21:36 Desyrel - PO 150 mg HS UNA Administration Psychiatric Treatment Plan - Problem List (1) Alcohol dependence Current Visit: Yes (2) Cannabis dependence Current Visit: Yes (3) Cocaine abuse Current Visit: Yes (4) Nicotine dependence Current Visit: Yes (5) PTSD (post-traumatic stress disorder) Current Visit: Yes (6) Substance induced mood disorder Current Visit: Yes (7) Bipolar disorder Current Visit: Yes (8) Epilepsy Current Visit: Yes (9) Hepatitis C Current Visit: Yes
[2017-05-11] MEDS: BACITRACIN 0.9 GM PACKET TP SCH ×2 (09:42→21:25)
[2017-05-11] MEDS: PANTOPRAZOLE 40 MG TABLET (FP) PO SCH (09:42)
[2017-05-11] MEDS: PRENATAL VITAMINS W/ FOLIC ACID TABLET (FP) PO SCH (09:42)
[2017-05-11] MEDS: NAPROXEN 500 MG TABLET (FP) PO SCH ×2 (09:42→21:26)
[2017-05-11] MEDS: NICOTINE 21 MG/24 HOURS TOPICAL PATCH TD SCH (09:43)
[2017-05-11] MEDS: CHLORHEXIDINE GLUCONATE 0.12% 15ML CUP PO SCH ×2 (09:43→21:26)
[2017-05-11] MEDS: SODIUM CHLORIDE NASAL SPRAY 44 ML BOTTLE NS PRN ×2 (09:43→21:26)
[2017-05-11] MEDS ORDERED: COLLOIDAL OATMEAL 1 BAR EACH TP PRN (14:03)
[2017-05-11] MEDS: SELENIUM SULFIDE 2.5% LOTION 4 OZ. TP SCH (16:15)
[2017-05-11] MEDS: THIAMINE HCL 100 MG TABLET (FP) PO SCH (21:26)
[2017-05-11] MEDS: traZODone HCL 50 MG TABLET (FP) PO SCH (21:26)
[2017-05-11] MEDS: SULFAMETHOXAZOLE/TRIMETHOPRIM 800MG/160MG D.S. TABLET PO SCH (22:00)
[2017-05-12] MEDS: GABAPENTIN 300 MG CAPSULE (FP) PO SCH ×3 (05:57→21:30)
[2017-05-12] MEDS: NICOTINE POLACRILEX 4 MG GUM BUC PRN (05:58)
[2017-05-12] MEDS: MENTHOL/PHENOL 1 EACH UD MM PRN (05:58)
[2017-05-12] MEDS: PANTOPRAZOLE 40 MG TABLET (FP) PO SCH (09:46)
[2017-05-12] MEDS: NICOTINE 21 MG/24 HOURS TOPICAL PATCH TD SCH (09:46)
[2017-05-12] MEDS: SULFAMETHOXAZOLE/TRIMETHOPRIM 800MG/160MG D.S. TABLET PO SCH ×2 (09:46→21:30)
[2017-05-12] MEDS: BACITRACIN 0.9 GM PACKET TP SCH ×2 (09:46→21:37)
[2017-05-12] MEDS: PRENATAL VITAMINS W/ FOLIC ACID TABLET (FP) PO SCH (09:46)
[2017-05-12] MEDS: NAPROXEN 500 MG TABLET (FP) PO SCH ×2 (09:46→21:30)
[2017-05-12] MEDS: CHLORHEXIDINE GLUCONATE 0.12% 15ML CUP PO SCH ×2 (09:47→21:33)
[2017-05-12] MEDS: SELENIUM SULFIDE 2.5% LOTION 4 OZ. TP SCH (09:47)
[2017-05-12] MEDS: SODIUM CHLORIDE NASAL SPRAY 44 ML BOTTLE NS PRN (09:47)
[2017-05-12] MEDS: guaiFENesin/D-METHORPHAN HB 10 ML UNIT-DOSE CUPS PO PRN ×2 (09:49→21:35)
[2017-05-12] MEDS: THIAMINE HCL 100 MG TABLET (FP) PO SCH (21:30)
[2017-05-12] MEDS: traZODone HCL 50 MG TABLET (FP) PO SCH (21:30)
[2017-05-13] MEDS: GABAPENTIN 300 MG CAPSULE (FP) PO SCH ×3 (06:08→21:39)
[2017-05-13] MEDS: SODIUM CHLORIDE NASAL SPRAY 44 ML BOTTLE NS PRN ×3 (06:09→21:38)
[2017-05-13] MEDS: MENTHOL/PHENOL 1 EACH UD MM PRN (06:10)
[2017-05-13] MEDS: NAPROXEN 500 MG TABLET (FP) PO SCH ×2 (09:14→21:39)
[2017-05-13] MEDS: PRENATAL VITAMINS W/ FOLIC ACID TABLET (FP) PO SCH (09:14)
[2017-05-13] MEDS: SULFAMETHOXAZOLE/TRIMETHOPRIM 800MG/160MG D.S. TABLET PO SCH ×2 (09:14→21:39)
[2017-05-13] MEDS: PANTOPRAZOLE 40 MG TABLET (FP) PO SCH (09:14)
[2017-05-13] MEDS: NICOTINE 21 MG/24 HOURS TOPICAL PATCH TD SCH (09:14)
[2017-05-13] MEDS: SELENIUM SULFIDE 2.5% LOTION 4 OZ. TP SCH (09:17)
[2017-05-13] MEDS ORDERED: PT OWN MED DRAWER 7, Y5N ONE (09:18)
[2017-05-13] MEDS: BACITRACIN 0.9 GM PACKET TP SCH ×2 (10:21→21:38)
[2017-05-13] MEDS: CHLORHEXIDINE GLUCONATE 0.12% 15ML CUP PO SCH ×2 (10:23→21:38)
[2017-05-13] MEDS: traZODone HCL 50 MG TABLET (FP) PO SCH (21:38)
[2017-05-13] MEDS: THIAMINE HCL 100 MG TABLET (FP) PO SCH (21:38)
[2017-05-14] MEDS: GABAPENTIN 300 MG CAPSULE (FP) PO SCH ×3 (05:52→21:25)
[2017-05-14] MEDS: guaiFENesin/D-METHORPHAN HB 10 ML UNIT-DOSE CUPS PO PRN ×2 (05:53→21:27)
[2017-05-14] MEDS: AMMONIUM LACTATE 12% LOTION 225 GM BOTTLE TP PRN (06:57)
[2017-05-14] MEDS: BACITRACIN 0.9 GM PACKET TP SCH ×2 (10:11→21:27)
[2017-05-14] MEDS: PRENATAL VITAMINS W/ FOLIC ACID TABLET (FP) PO SCH (10:11)
[2017-05-14] MEDS: SODIUM CHLORIDE NASAL SPRAY 44 ML BOTTLE NS PRN (10:11)
[2017-05-14] MEDS: NAPROXEN 500 MG TABLET (FP) PO SCH ×2 (10:11→21:25)
[2017-05-14] MEDS: NICOTINE 21 MG/24 HOURS TOPICAL PATCH TD SCH (10:11)
[2017-05-14] MEDS: PANTOPRAZOLE 40 MG TABLET (FP) PO SCH (10:11)
[2017-05-14] MEDS: SELENIUM SULFIDE 2.5% LOTION 4 OZ. TP SCH (10:13)
[2017-05-14] MEDS: CHLORHEXIDINE GLUCONATE 0.12% 15ML CUP PO SCH ×2 (10:14→21:25)
[2017-05-14] MEDS: SULFAMETHOXAZOLE/TRIMETHOPRIM 800MG/160MG D.S. TABLET PO SCH ×2 (10:18→21:25)
[2017-05-14] MEDS: traZODone HCL 50 MG TABLET (FP) PO SCH (21:25)
[2017-05-14] MEDS: THIAMINE HCL 100 MG TABLET (FP) PO SCH (21:25)
[2017-05-15] MEDS: GABAPENTIN 300 MG CAPSULE (FP) PO SCH ×3 (06:29→21:22)
[2017-05-15] MEDS: NICOTINE POLACRILEX 4 MG GUM BUC PRN ×4 (06:30→21:23)
[2017-05-15] MEDS: guaiFENesin/D-METHORPHAN HB 10 ML UNIT-DOSE CUPS PO PRN (06:30)
[2017-05-15] MEDS: SODIUM CHLORIDE NASAL SPRAY 44 ML BOTTLE NS PRN ×2 (09:29→21:21)
[2017-05-15] MEDS: NICOTINE 21 MG/24 HOURS TOPICAL PATCH TD SCH (09:29)
[2017-05-15] MEDS: SULFAMETHOXAZOLE/TRIMETHOPRIM 800MG/160MG D.S. TABLET PO SCH ×2 (09:30→21:22)
[2017-05-15] MEDS: PANTOPRAZOLE 40 MG TABLET (FP) PO SCH (09:30)
[2017-05-15] MEDS: PRENATAL VITAMINS W/ FOLIC ACID TABLET (FP) PO SCH (09:30)
[2017-05-15] MEDS: CHLORHEXIDINE GLUCONATE 0.12% 15ML CUP PO SCH ×2 (09:30→21:23)
[2017-05-15] MEDS: NAPROXEN 500 MG TABLET (FP) PO SCH ×2 (09:30→21:22)
[2017-05-15] MEDS: BACITRACIN 0.9 GM PACKET TP SCH ×2 (10:13→21:21)
[2017-05-15] MEDS ORDERED: PT OWN MED DRAWER 7, Y5N ONE (14:17)
[2017-05-15] MEDS: SELENIUM SULFIDE 2.5% LOTION 4 OZ. TP SCH (14:23)
[2017-05-15] MEDS: traZODone HCL 50 MG TABLET (FP) PO SCH (21:22)
[2017-05-15] MEDS: THIAMINE HCL 100 MG TABLET (FP) PO SCH (21:22)
[2017-05-16] MEDS: GABAPENTIN 300 MG CAPSULE (FP) PO SCH ×3 (06:06→21:30)
[2017-05-16] MEDS: NICOTINE POLACRILEX 4 MG GUM BUC PRN ×2 (06:07→14:20)
[2017-05-16] MEDS ORDERED: PT OWN MED DRAWER 7, Y5N ONE (07:21)
[2017-05-16] MEDS: SULFAMETHOXAZOLE/TRIMETHOPRIM 800MG/160MG D.S. TABLET PO SCH ×2 (09:39→21:29)
[2017-05-16] MEDS: NICOTINE 21 MG/24 HOURS TOPICAL PATCH TD SCH (09:39)
[2017-05-16] MEDS: PRENATAL VITAMINS W/ FOLIC ACID TABLET (FP) PO SCH (09:39)
[2017-05-16] MEDS: CHLORHEXIDINE GLUCONATE 0.12% 15ML CUP PO SCH ×2 (09:39→21:31)
[2017-05-16] MEDS: BACITRACIN 0.9 GM PACKET TP SCH ×2 (09:39→21:29)
[2017-05-16] MEDS: NAPROXEN 500 MG TABLET (FP) PO SCH ×2 (09:39→21:29)
[2017-05-16] MEDS: PANTOPRAZOLE 40 MG TABLET (FP) PO SCH (09:39)
[2017-05-16] MEDS: SELENIUM SULFIDE 2.5% LOTION 4 OZ. TP SCH (09:39)
[2017-05-16] MEDS: SODIUM CHLORIDE NASAL SPRAY 44 ML BOTTLE NS PRN (21:28)
[2017-05-16] MEDS: traZODone HCL 50 MG TABLET (FP) PO SCH (21:29)
[2017-05-16] MEDS: THIAMINE HCL 100 MG TABLET (FP) PO SCH (21:30)
[2017-05-16] MEDS: guaiFENesin/D-METHORPHAN HB 10 ML UNIT-DOSE CUPS PO PRN (21:31)
[2017-05-17] MEDS: MENTHOL/PHENOL 1 EACH UD MM PRN ×2 (06:27→21:45)
[2017-05-17] MEDS: NICOTINE POLACRILEX 4 MG GUM BUC PRN ×2 (06:27→21:45)
[2017-05-17] MEDS: GABAPENTIN 300 MG CAPSULE (FP) PO SCH ×3 (06:27→21:42)
[2017-05-17] MEDS: PANTOPRAZOLE 40 MG TABLET (FP) PO SCH (10:03)
[2017-05-17] MEDS: SULFAMETHOXAZOLE/TRIMETHOPRIM 800MG/160MG D.S. TABLET PO SCH ×2 (10:03→21:42)
[2017-05-17] MEDS: NICOTINE 21 MG/24 HOURS TOPICAL PATCH TD SCH (10:03)
[2017-05-17] MEDS: BACITRACIN 0.9 GM PACKET TP SCH ×2 (10:03→21:42)
[2017-05-17] MEDS: NAPROXEN 500 MG TABLET (FP) PO SCH ×2 (10:03→21:43)
[2017-05-17] MEDS: PRENATAL VITAMINS W/ FOLIC ACID TABLET (FP) PO SCH (10:03)
[2017-05-17] MEDS: SELENIUM SULFIDE 2.5% LOTION 4 OZ. TP SCH (10:04)
[2017-05-17] MEDS: CHLORHEXIDINE GLUCONATE 0.12% 15ML CUP PO SCH ×2 (10:04→21:56)
[2017-05-17] MEDS: traZODone HCL 50 MG TABLET (FP) PO SCH (21:43)
[2017-05-17] MEDS: THIAMINE HCL 100 MG TABLET (FP) PO SCH (21:44)
[2017-05-18] MEDS: GABAPENTIN 300 MG CAPSULE (FP) PO SCH ×2 (06:08→13:25)
[2017-05-18] MEDS: SELENIUM SULFIDE 2.5% LOTION 4 OZ. TP SCH (06:10)
[2017-05-18] MEDS: NICOTINE POLACRILEX 4 MG GUM BUC PRN (06:11)
[2017-05-18] MEDS: guaiFENesin/D-METHORPHAN HB 10 ML UNIT-DOSE CUPS PO PRN (06:11)
[2017-05-18] MEDS: NICOTINE 21 MG/24 HOURS TOPICAL PATCH TD SCH (09:30)
[2017-05-18] MEDS: PRENATAL VITAMINS W/ FOLIC ACID TABLET (FP) PO SCH (09:30)
[2017-05-18] MEDS: NAPROXEN 500 MG TABLET (FP) PO SCH (09:30)
[2017-05-18] MEDS: PANTOPRAZOLE 40 MG TABLET (FP) PO SCH (09:30)
[2017-05-18] MEDS: SULFAMETHOXAZOLE/TRIMETHOPRIM 800MG/160MG D.S. TABLET PO SCH (09:30)
[2017-05-18] MEDS: BACITRACIN 0.9 GM PACKET TP SCH (09:30)
[2017-05-18] MEDS: SODIUM CHLORIDE NASAL SPRAY 44 ML BOTTLE NS PRN (09:31)
[2017-05-18] MEDS: CHLORHEXIDINE GLUCONATE 0.12% 15ML CUP PO SCH (09:31)
[2017-05-18] MEDS ORDERED: PT OWN MED DRAWER 7, Y5N ONE ×2 (19:06→21:10)
[2017-05-19] MEDS: SELENIUM SULFIDE 2.5% LOTION 4 OZ. TP SCH (05:54)
[2017-05-19] MEDS: GABAPENTIN 300 MG CAPSULE (FP) PO SCH ×3 (05:54→21:59)
[2017-05-19] MEDS: BACITRACIN 0.9 GM PACKET TP SCH ×3 (10:29→21:59)
[2017-05-19] MEDS: SULFAMETHOXAZOLE/TRIMETHOPRIM 800MG/160MG D.S. TABLET PO SCH ×3 (10:29→21:59)
[2017-05-19] MEDS: PRENATAL VITAMINS W/ FOLIC ACID TABLET (FP) PO SCH (10:29)
[2017-05-19] MEDS: NICOTINE 21 MG/24 HOURS TOPICAL PATCH TD SCH (10:30)
[2017-05-19] MEDS: CHLORHEXIDINE GLUCONATE 0.12% 15ML CUP PO SCH ×3 (10:30→21:59)
[2017-05-19] MEDS: NAPROXEN 500 MG TABLET (FP) PO SCH ×3 (10:30→21:59)
[2017-05-19] MEDS: PANTOPRAZOLE 40 MG TABLET (FP) PO SCH (10:30)
[2017-05-19] MEDS: NICOTINE POLACRILEX 4 MG GUM BUC PRN (14:48)
[2017-05-19] MEDS: traZODone HCL 50 MG TABLET (FP) PO SCH ×2 (16:54→22:00)
[2017-05-19] MEDS: THIAMINE HCL 100 MG TABLET (FP) PO SCH ×2 (16:55→21:59)
[2017-05-20] MEDS: SELENIUM SULFIDE 2.5% LOTION 4 OZ. TP SCH (06:00)
[2017-05-20] MEDS: GABAPENTIN 300 MG CAPSULE (FP) PO SCH ×3 (06:00→21:55)
[2017-05-20] MEDS: NICOTINE POLACRILEX 4 MG GUM BUC PRN ×3 (06:01→21:56)
[2017-05-20] MEDS: SULFAMETHOXAZOLE/TRIMETHOPRIM 800MG/160MG D.S. TABLET PO SCH ×2 (09:33→21:55)
[2017-05-20] MEDS: PANTOPRAZOLE 40 MG TABLET (FP) PO SCH (09:33)
[2017-05-20] MEDS: NAPROXEN 500 MG TABLET (FP) PO SCH ×2 (09:33→21:55)
[2017-05-20] MEDS: NICOTINE 21 MG/24 HOURS TOPICAL PATCH TD SCH (09:33)
[2017-05-20] MEDS: CHLORHEXIDINE GLUCONATE 0.12% 15ML CUP PO SCH ×2 (09:33→21:54)
[2017-05-20] MEDS: BACITRACIN 0.9 GM PACKET TP SCH ×2 (09:33→21:54)
[2017-05-20] MEDS: PRENATAL VITAMINS W/ FOLIC ACID TABLET (FP) PO SCH (09:33)
[2017-05-20] MEDS: MENTHOL/PHENOL 1 EACH UD MM PRN (09:35)
[2017-05-20] MEDS: traZODone HCL 50 MG TABLET (FP) PO SCH (21:54)
[2017-05-20] MEDS: THIAMINE HCL 100 MG TABLET (FP) PO SCH (21:54)
[2017-05-21] MEDS ORDERED: PT OWN MED DRAWER 7, Y5N ONE ×2 (04:11→09:37)
[2017-05-21] MEDS: NICOTINE POLACRILEX 4 MG GUM BUC PRN ×3 (06:00→22:11)
[2017-05-21] MEDS: GABAPENTIN 300 MG CAPSULE (FP) PO SCH ×3 (06:00→22:10)
[2017-05-21] MEDS: SELENIUM SULFIDE 2.5% LOTION 4 OZ. TP SCH (06:01)
[2017-05-21] MEDS: PRENATAL VITAMINS W/ FOLIC ACID TABLET (FP) PO SCH (09:36)
[2017-05-21] MEDS: BACITRACIN 0.9 GM PACKET TP SCH ×2 (09:36→22:10)
[2017-05-21] MEDS: SULFAMETHOXAZOLE/TRIMETHOPRIM 800MG/160MG D.S. TABLET PO SCH ×2 (09:37→22:10)
[2017-05-21] MEDS: NICOTINE 21 MG/24 HOURS TOPICAL PATCH TD SCH (09:37)
[2017-05-21] MEDS: NAPROXEN 500 MG TABLET (FP) PO SCH ×2 (09:37→22:10)
[2017-05-21] MEDS: PANTOPRAZOLE 40 MG TABLET (FP) PO SCH (09:37)
[2017-05-21] MEDS: CHLORHEXIDINE GLUCONATE 0.12% 15ML CUP PO SCH ×2 (09:38→22:12)
[2017-05-21] MEDS: MENTHOL/PHENOL 1 EACH UD MM PRN (09:38)
[2017-05-21] MEDS: THIAMINE HCL 100 MG TABLET (FP) PO SCH (22:10)
[2017-05-21] MEDS: traZODone HCL 50 MG TABLET (FP) PO SCH (22:10)
[2017-05-22] MEDS: GABAPENTIN 300 MG CAPSULE (FP) PO SCH ×3 (06:22→21:52)
[2017-05-22] MEDS: SELENIUM SULFIDE 2.5% LOTION 4 OZ. TP SCH (06:23)
[2017-05-22] MEDS: NICOTINE POLACRILEX 4 MG GUM BUC PRN ×2 (06:24→16:02)
[2017-05-22] MEDS: guaiFENesin/D-METHORPHAN HB 10 ML UNIT-DOSE CUPS PO PRN (06:24)
[2017-05-22] MEDS: NICOTINE 21 MG/24 HOURS TOPICAL PATCH TD SCH (09:44)
[2017-05-22] MEDS: SULFAMETHOXAZOLE/TRIMETHOPRIM 800MG/160MG D.S. TABLET PO SCH ×2 (09:44→21:52)
[2017-05-22] MEDS: NAPROXEN 500 MG TABLET (FP) PO SCH ×2 (09:44→21:52)
[2017-05-22] MEDS: CHLORHEXIDINE GLUCONATE 0.12% 15ML CUP PO SCH ×2 (09:44→21:52)
[2017-05-22] MEDS: BACITRACIN 0.9 GM PACKET TP SCH ×2 (09:44→21:52)
[2017-05-22] MEDS: PRENATAL VITAMINS W/ FOLIC ACID TABLET (FP) PO SCH (09:44)
[2017-05-22] MEDS: PANTOPRAZOLE 40 MG TABLET (FP) PO SCH (09:44)
[2017-05-22] MEDS: traZODone HCL 50 MG TABLET (FP) PO SCH (21:52)
[2017-05-22] MEDS: THIAMINE HCL 100 MG TABLET (FP) PO SCH (21:52)
[2017-05-23] MEDS: GABAPENTIN 300 MG CAPSULE (FP) PO SCH ×3 (06:05→21:28)
[2017-05-23] MEDS: SELENIUM SULFIDE 2.5% LOTION 4 OZ. TP SCH (06:05)
[2017-05-23] MEDS: CHLORHEXIDINE GLUCONATE 0.12% 15ML CUP PO SCH ×2 (09:35→21:30)
[2017-05-23] MEDS: BACITRACIN 0.9 GM PACKET TP SCH ×2 (09:35→21:28)
[2017-05-23] MEDS: PANTOPRAZOLE 40 MG TABLET (FP) PO SCH (09:35)
[2017-05-23] MEDS: NAPROXEN 500 MG TABLET (FP) PO SCH ×2 (09:35→21:28)
[2017-05-23] MEDS: NICOTINE 21 MG/24 HOURS TOPICAL PATCH TD SCH (09:35)
[2017-05-23] MEDS: SULFAMETHOXAZOLE/TRIMETHOPRIM 800MG/160MG D.S. TABLET PO SCH ×2 (09:35→21:28)
[2017-05-23] MEDS: PRENATAL VITAMINS W/ FOLIC ACID TABLET (FP) PO SCH (09:35)
[2017-05-23] MEDS ORDERED: PT OWN MED DRAWER 7, Y5N ONE (09:36)
[2017-05-23] MEDS: traZODone HCL 50 MG TABLET (FP) PO SCH (21:28)
[2017-05-23] MEDS: THIAMINE HCL 100 MG TABLET (FP) PO SCH (21:30)
[2017-05-24] MEDS: GABAPENTIN 300 MG CAPSULE (FP) PO SCH ×3 (06:30→21:40)
[2017-05-24] MEDS: PRENATAL VITAMINS W/ FOLIC ACID TABLET (FP) PO SCH (09:36)
[2017-05-24] MEDS: NAPROXEN 500 MG TABLET (FP) PO SCH ×2 (09:36→21:40)
[2017-05-24] MEDS: SULFAMETHOXAZOLE/TRIMETHOPRIM 800MG/160MG D.S. TABLET PO SCH ×2 (09:36→21:41)
[2017-05-24] MEDS: PANTOPRAZOLE 40 MG TABLET (FP) PO SCH (09:36)
[2017-05-24] MEDS: BACITRACIN 0.9 GM PACKET TP SCH ×2 (09:37→21:40)
[2017-05-24] MEDS: CHLORHEXIDINE GLUCONATE 0.12% 15ML CUP PO SCH ×2 (09:37→21:40)
[2017-05-24] MEDS: NICOTINE 21 MG/24 HOURS TOPICAL PATCH TD SCH (09:37)
[2017-05-24] MEDS: THIAMINE HCL 100 MG TABLET (FP) PO SCH (21:40)
[2017-05-24] MEDS: traZODone HCL 50 MG TABLET (FP) PO SCH (21:41)
[2017-05-25] MEDS: NICOTINE POLACRILEX 4 MG GUM BUC PRN ×2 (06:16→09:40)
[2017-05-25] MEDS: GABAPENTIN 300 MG CAPSULE (FP) PO SCH ×3 (06:16→21:56)
[2017-05-25] MEDS: CHLORHEXIDINE GLUCONATE 0.12% 15ML CUP PO SCH ×2 (09:40→21:57)
[2017-05-25] MEDS: PANTOPRAZOLE 40 MG TABLET (FP) PO SCH (09:40)
[2017-05-25] MEDS: NAPROXEN 500 MG TABLET (FP) PO SCH ×2 (09:40→21:56)
[2017-05-25] MEDS: BACITRACIN 0.9 GM PACKET TP SCH ×2 (09:40→21:55)
[2017-05-25] MEDS: PRENATAL VITAMINS W/ FOLIC ACID TABLET (FP) PO SCH (09:40)
[2017-05-25] MEDS: SULFAMETHOXAZOLE/TRIMETHOPRIM 800MG/160MG D.S. TABLET PO SCH ×2 (09:40→21:56)
[2017-05-25] MEDS: NICOTINE 21 MG/24 HOURS TOPICAL PATCH TD SCH (09:40)
[2017-05-25] MEDS: traZODone HCL 50 MG TABLET (FP) PO SCH (21:56)
[2017-05-25] MEDS: THIAMINE HCL 100 MG TABLET (FP) PO SCH (21:56)
[2017-05-26] MEDS: GABAPENTIN 300 MG CAPSULE (FP) PO SCH ×3 (06:35→22:03)
[2017-05-26] MEDS: NICOTINE 21 MG/24 HOURS TOPICAL PATCH TD SCH (09:34)
[2017-05-26] MEDS: SULFAMETHOXAZOLE/TRIMETHOPRIM 800MG/160MG D.S. TABLET PO SCH ×2 (09:34→22:03)
[2017-05-26] MEDS: BACITRACIN 0.9 GM PACKET TP SCH ×2 (09:34→22:04)
[2017-05-26] MEDS: NAPROXEN 500 MG TABLET (FP) PO SCH ×2 (09:34→22:03)
[2017-05-26] MEDS: PRENATAL VITAMINS W/ FOLIC ACID TABLET (FP) PO SCH (09:34)
[2017-05-26] MEDS: PANTOPRAZOLE 40 MG TABLET (FP) PO SCH (09:34)
[2017-05-26] MEDS: CHLORHEXIDINE GLUCONATE 0.12% 15ML CUP PO SCH ×2 (09:35→22:06)
--- NOTE | 2017-05-26 11:37 | PN ---
Psychiatric Progress Note Vital Signs: Vital Signs Period Temp Pulse Resp BP Sys/Salazar Pulse Ox Last 24 Hr 98.2 F 87 16-18 90/52 Date of Session: 05/26/17 Chief Complaint:: Discharge Note HPI: Patient addressing Alcohol and Cannabis Dependence, Cocaine Abuse comorbid with Nicotine Dependence, Posttraumatic Stress Disorder and Substance-induced Mood Disorder ROS: Seizure Disorder, Hep C Current Medications: Active Medications Generic Name Dose Route Start Last Admin Trade Name Freq PRN Reason Stop Dose Admin Al Hydroxide/Mg Hydroxide 30 ml 04/29/17 14:11 05/02/17 06:29 Mylanta Oral Suspension - PO 30 ml Q6H PRN Administration DYSPEPSIA Aspirin 325 mg 05/02/17 14:15 05/03/17 06:46 Ecotrin - PO 325 mg Q4H PRN Administration FEVER Bacitracin 0.9 gm 05/03/17 21:55 05/26/17 09:34 Bacitracin - TP 0.9 gm BID UNA Administration Chlorhexidine Gluconate 15 ml 04/29/17 22:00 05/26/17 09:35 Peridex - PO 15 ml BID UNA Administration Colloidal Oatmeal 1 applic 05/11/17 14:03 05/12/17 21:35 [place] Soap - TP 1 applic DAILY PRN Administration HYGEINE Eucalyptus/Menthol/Phenol/Sorbitol 1 each 04/29/17 14:11 05/21/17 09:38 Cepastat Lozenge - MM 1 each Q4H PRN Administration SORE THROAT Gabapentin 600 mg 04/29/17 22:00 05/26/17 06:35 Neurontin - PO 600 mg TID UNA Administration Guaifenesin 10 ml 04/29/17 14:11 05/22/17 06:24 Robitussin Dm - PO 10 ml Q6H PRN Administration COUGH Lactic Acid 1 applic 05/01/17 15:13 05/14/17 06:57 Lac-Hydrin 12 TP 1 applic BID PRN Administration DRY SKIN Loperamide HCl 4 mg 04/29/17 14:11 05/02/17 09:44 Imodium - PO 4 mg Q6H PRN Administration DIARRHEA Magnesium Citrate 300 ml 04/29/17 14:11 Citroma - PO Q48H PRN CONSTIPATION Magnesium Hydroxide 30 ml 04/29/17 18:57 Milk Of Magnesia - PO DAILY PRN CONSTIPATION Naproxen 500 mg 05/01/17 22:00 05/26/17 09:34 Naprosyn - PO 500 mg BID UNA Administration Nicotine 21 mg 04/29/17 10:00 05/26/17 09:34 Nicoderm Patch - TD 21 mg DAILY UNA Administration Nicotine Polacrilex 4 mg 04/29/17 14:11 05/25/17 09:40 Nicorette Gum - BUC 4 mg Q2H PRN Administration NICOTINE REPLACEMENT RX Pantoprazole Sodium 40 mg 05/02/17 10:00 05/26/17 09:34 Protonix - PO 40 mg DAILY UNA Administration Multivit/Folic Acid/Iron 1 tab 04/30/17 10:00 05/26/17 09:34 Vitamins (Sjr) - PO 1 tab DAILY UNA Administration Pseudoephedrine/Triprolidine 1 combo 04/29/17 14:11 Actifed - PO TID PRN NASAL CONGESTION Sodium Chloride 2 spray 05/05/17 13:29 05/18/17 09:31 [place] Nasal [place] - NS 2 spray BID PRN Administration NASAL CONGESTION Thiamine HCl 100 mg 04/29/17 22:00 05/25/17 21:56 Vitamin B1 - PO 100 mg HS UNA Administration Trazodone HCl 150 mg 05/01/17 22:00 05/25/17 21:56 Desyrel - PO 150 mg HS UNA Administration Trimethoprim/Sulfamethoxazole 1 each 05/11/17 22:00 05/26/17 09:34 Bactrim Ds - PO 1 each BID UNA Administration Current Side Effect: No Lab tests ordered: Yes Lab tests reviewed: Yes Provider note:: Patient will complete this program on 05/27/17. He has met his treatment goals and will continue to address his issues in outpatient treatment at [facility]. Told typewriter repairer that from his participation in this program, he has learned the importance of establishing a sober support network in order to maintain abstinence. He responded well to Trazadone 150 mg po HS. Script for 30 days supply of medication will be electronically transmitted to [facility] at [address] [place] [address]. He is stable for discharge on Total face to face time:: 35 Mental Status Exam - Mental Status Exam Alert and Oriented to: Time, Place, Person Cognitive Function: Fair Patient Appearance: Well Groomed Mood: Hopeful, Euthymic Affect: Appropriate Patient Behavior: Cooperative Speech Pattern: Clear Voice Loudness: Normal Thought Process: Intact, Goal Oriented Thought Disorder: Not Present Hallucinations: Denies Suicidal Ideation: Denies Homicidal Ideation: Denies Insight/Judgement: Fair Sleep: Fair Appetite: Good Muscle strength/Tone: Normal Gait/Station: Normal Psychiatric Treatment Plan - Problem List (1) Alcohol dependence Current Visit: Yes (2) Cannabis dependence Current Visit: Yes (3) Cocaine abuse Current Visit: Yes (4) Nicotine dependence Current Visit: Yes (5) PTSD (post-traumatic stress disorder) Current Visit: Yes (6) Substance induced mood disorder Current Visit: Yes (7) Bipolar disorder Current Visit: Yes (8) Epilepsy Current Visit: Yes (9) Hepatitis C Current Visit: Yes Initial treatment plan: Patient will be discharged on 05/27/17 and referred to [facility] for outpatient treatment
[2017-05-26] MEDS: traZODone HCL 50 MG TABLET (FP) PO SCH (22:03)
[2017-05-26] MEDS: THIAMINE HCL 100 MG TABLET (FP) PO SCH (22:04)
[2017-05-26] MEDS: NICOTINE POLACRILEX 4 MG GUM BUC PRN (22:06)
[2017-05-27] MEDS: GABAPENTIN 300 MG CAPSULE (FP) PO SCH (06:03)
[2017-05-27 06:38] VITALS: BP 110/63; PULSE 61; TEMP 98.5
[2017-05-27] MEDS: BACITRACIN 0.9 GM PACKET TP SCH (09:18)
[2017-05-27] MEDS: PRENATAL VITAMINS W/ FOLIC ACID TABLET (FP) PO SCH (09:18)
[2017-05-27] MEDS: PANTOPRAZOLE 40 MG TABLET (FP) PO SCH (09:18)
[2017-05-27] MEDS: NAPROXEN 500 MG TABLET (FP) PO SCH (09:18)
[2017-05-27] MEDS: NICOTINE 21 MG/24 HOURS TOPICAL PATCH TD SCH (09:18)
[2017-05-27] MEDS: CHLORHEXIDINE GLUCONATE 0.12% 15ML CUP PO SCH (09:18)
[2017-05-27] MEDS: SULFAMETHOXAZOLE/TRIMETHOPRIM 800MG/160MG D.S. TABLET PO SCH (09:18)
[2017-05-27] MEDS: NICOTINE POLACRILEX 4 MG GUM BUC PRN (09:19)
[2017-05-27] MEDS ORDERED: PT OWN MED DRAWER 7, Y5N ONE (09:21)
== END 2017-05-27 09:45 | disposition home or self-care (01) | DRG 772 ==
LOC: YASAS 11:20 → Y3W 15:08
PROVIDERS: ADMIT Psychiatry & Neurology Psychiatry; ATTEND Psychiatry & Neurology Psychiatry
PROC: HZ42ZZZ Group Counseling for Substance Abuse Treatment, Cognitive-Behavioral (ICD-10-PCS; principal; 2017-04-29)
DX: F10.20 Alcohol dependence, uncomplicated (principal); F12.20 Cannabis dependence, uncomplicated; F14.20 Cocaine dependence, uncomplicated; F17.210 Nicotine dependence, cigarettes, uncomplicated; F43.10 Post-traumatic stress disorder, unspecified; F19.24 Other psychoactive substance dependence with psychoactive substance-induced mood disorder; F31.9 Bipolar disorder, unspecified; G40.909 Epilepsy, unspecified, not intractable, without status epilepticus; B18.2 Chronic viral hepatitis C; Z87.438 Personal history of other diseases of male genital organs; Z88.0 Allergy status to penicillin
CPT/HCPCS: 36415; 80053; 81003; 81015; 84075; 84450; 84460; 85025; 85027; 85610; 86593; 87389; 90688; 90732; 93005; 93010; G0008; G0009

== ENCOUNTER 2018-04-01 13:29 | Inpatient (IN) | payer OTHER ==
[2018-04-01 15:29] VITALS: BMI 31.8
--- NOTE | 2018-04-01 16:24 | HP ---
CIWA Score Nausea/Vomitin-Int. Nausea w/Dry Heave Muscle Tremors: 4-Moderate,w/Arms Extend Anxiety: 2 Agitation: 2 Paroxysmal Sweats: 1-Minimal Palms Moist Orientation: 0-Oriented Tacttile Disturbances: 0-None Auditory Disturbances: 0-None Visual Disturbances: 0-None Headache: 2-Mild CIWA-Ar Total Score: 15 - Admission Criteria OASAS Guidelines: Admission for Medically Managed Detox: Requires at least one of the followin. CIWA greater than 12 2. Seizures within the past 24 hours 3. Delirium tremens within the past 24 hours 4. Hallucinations within the past 24 hours 5. Acute intervention needed for co occurring medical disorder 6. Acute intervention needed for co occurring psychiatric disorder 7. Severe withdrawal that cannot be handled at a lower level of care (continued vomiting, continued diarrhea, abnormal vital signs) requiring intravenous medication and/or fluids 8. Admission ROS [facility] - [facility] Chief Complaint: "detox from alcohol" Allergies/Adverse Reactions: Allergies Allergy/AdvReac Type Severity Reaction Status Date / Time Penicillins AdvReac Severe Swelling Verified 04/01/18 15:46 History of Present Illness: 42 yo with bipolar, PTSD, anxiety,no medical problems, cured HCV,was at [facility] custodial until 02/25 and when he left started using alcohol and cocaine, weed and rarely xanax. Does not take any meds at the present time- was on trazodone, zoloft, abilify and neurontin in the past. Here for admission as he was mandated by court for getting caught with paraphrenilia. h/o seizures when he stopped drinking cold turkey, no h/o DT's Alcohol- says he drinks alcohol day and night, 1/2 gallon of vodka, occ beer Cocaine- $80/day weed- $20/day DUR/ISTOP: no meds Utox: THC cocaine, benzo. HORACIO- 0, last drink early AM - Ebola screening Have you traveled outside of the country in the last 21 days: No Have you had contact with anyone from an Ebola affected area: No Have you been sick,other than usual withdrawal symptoms: No Do you have a fever: No Patient History - Patient Medical History Hx Anemia: No Hx Asthma: No Hx Chronic Obstructive Pulmonary Disease (COPD): No Hx Cancer: No Hx Cardiac Disorders: No Hx Congestive Heart Failure: No Hx Hypertension: No Hx Hypercholesterolemia: No Hx Pacemaker: No HX Cerebrovascular Accident: No Hx Seizures: Yes (tonic clonic alcohol enduced in 2016) Hx Diabetes: No Hx Gastrointestinal Disorders: No Hx Liver Disease: No Hx Genitourinary Disorders: No Hx Sexually Transmitted Disorders: Yes (CHLAMYDIA twice AT AGE 19, says he was treated) Hx Renal Disease (ESRD): No Hx Thyroid Disease: No Hx Human Immunodeficiency Virus (HIV): No Hx Hepatitis C: Yes Hx Depression: Yes Hx Suicide Attempt: No Hx Schizophrenia: No - Patient Surgical History Past Surgical History: Yes Hx Neurologic Surgery: No Hx Cataract Extraction: No Hx Cardiac Surgery: No Hx Lung Surgery: No Hx Breast Surgery: No Hx Breast Biopsy: No Hx Abdominal Surgery: No Hx Appendectomy: No Hx Cholecystectomy: No Hx Genitourinary Surgery: No Hx Section: No Hx Orthopedic Surgery: Yes (DONATED RT KIDNEY) Anesthesia Reaction: No - PPD History Previous Implant?: Yes Documented Results: Negative w/proof Date: 05/02/17 - Smoking Cessation Smoking history: Current every day smoker Have you smoked in the past 12 months: Yes Aproximately how many cigarettes per day: 40 Cigars Per Day: 0 Hx Chewing Tobacco Use: No Initiated information on smoking cessation: Yes 'Breaking Loose' booklet given: 04/01/18 - Substance & Tx. History Hx Alcohol Use: Yes (1 gallon a day) Hx Substance Use: Yes Substance Use Type: Cocaine ($80/day) Hx Substance Use Treatment: Yes - Substances Abused Alcohol Route: Oral Frequency: Daily Amount used: 0.5 gallon of vodka Age of first use: 13 Date of Last Use: 04/01/18 Cocaine Route: Smoking Frequency: Daily Amount used: $80 Age of first use: 26 Date of Last Use: 03/31/18 marijuana Route: Smoking Frequency: Daily Amount used: 2 blunts Age of first use: 13 Date of Last Use: 03/31/18 Family Disease History - Family Disease History Family Disease History: Diabetes: Grandparent (maternal grandmother), Other: Father (alcohol use), Mother (alcohol use), Son (15yr with polysubstance use) Admission Physical Exam [facility]HS - Vital Signs Vital Signs: Vital Signs - 24 hr 04/01/18 15:21 Temperature 96.2 F L Pulse Rate 75 Respiratory 20 Rate Blood Pressure 108/53 L - Physical General Appearance: Yes: Within Normal Limits HEENTM: Yes: Within Normal Limits, EOMI, Pharynx Normal Respiratory: Yes: Within Normal Limits, Chest Non-Tender, Lungs Clear Neck: Yes: Within Normal Limits Breast: Yes: Within Normal Limits Cardiology: Yes: Within Normal Limits Abdominal: Yes: Within Normal Limits, Non Tender, Protuberent Genitourinary: Yes: Within Normal Limits Back: Yes: Within Normal Limits Musculoskeletal: Yes: Within Normal Limits Extremities: Yes: Within Normal Limits Neurological: Yes: Within Normal Limits Integumentary: Yes: Within Normal Limits Lymphatic: Yes: Within Normal Limits - Diagnostic (1) Alcohol dependence Current Visit: No Status: Acute (2) Cannabis dependence Current Visit: No Status: Acute (3) Cocaine abuse Current Visit: No Status: Acute (4) Nicotine dependence Current Visit: No Status: Chronic (5) PTSD (post-traumatic stress disorder) Current Visit: No Status: Chronic (6) Substance induced mood disorder Current Visit: No Status: Chronic (7) Bipolar disorder Current Visit: No Status: Ruled-out Cleared for Admission [facility] - Detox or Rehab [facility] Level of Care: Medically Managed Detox Regimen/Protocol: Librium [facility] Breath Alcohol Content Breath Alcohol Content: 0 Urine Drug Screen - Results Drug Screen Negative: No Urine Drug Screen Results: MAURO-Cocaine, MET-Methamphetamine, BZO-Benzodiazepines
[2018-04-01] MEDS ORDERED: MENTHOL/PHENOL 1 EACH UD MM PRN (16:32)
[2018-04-01] MEDS ORDERED: MAG HYDROX/AL HYDROX/SIMETH 30 ML UNIT-DOSE CUP PO PRN (16:32)
[2018-04-01] MEDS ORDERED: P-EPHED 60MG/TRIPROLIDI 2.5MG TABLET PO PRN (16:32)
[2018-04-01] MEDS ORDERED: guaiFENesin/D-METHORPHAN HB 10 ML UNIT-DOSE CUPS PO PRN (16:32)
[2018-04-01] MEDS ORDERED: MAGNESIUM HYDROX 2400MG/30ML ORAL SUSPENSION 30 ML CUP PO PRN (16:32)
[2018-04-01] MEDS ORDERED: ACETAMINOPHEN 325 MG TABLET (FP) PO PRN (16:32)
[2018-04-01] MEDS ORDERED: MAGNESIUM CITRATE 300 ML BOTTLE PO PRN (16:32)
[2018-04-01] MEDS ORDERED: IBUPROFEN 400 MG TABLET (FP) PO PRN (16:32)
[2018-04-01] MEDS ORDERED: LOPERAMIDE HCL 2 MG CAPSULE PO PRN (16:32)
[2018-04-01] MEDS ORDERED: chlordiazePOXIDE HCL 25 MG CAPSULE PO PRN (16:34)
[2018-04-01] MEDS: chlordiazePOXIDE HCL 25 MG CAPSULE PO SCH ×2 (18:25→23:23)
[2018-04-01] MEDS ORDERED: MELATONIN 5 MG TABLETS PO PRN (22:00)
[2018-04-01] MEDS: THIAMINE HCL 100 MG TABLET (FP) PO SCH (23:23)
[2018-04-02] MEDS: chlordiazePOXIDE HCL 25 MG CAPSULE PO SCH ×4 (06:29→22:56)
[2018-04-02] MEDS: PRENATAL VITAMINS W/ FOLIC ACID TABLET (FP) PO SCH (10:25)
[2018-04-02] MEDS: NICOTINE 21 MG/24 HOURS TOPICAL PATCH TD SCH (10:25)
[2018-04-02 10:34] LABS: HEMATOCRIT 43.2 % (35.4-49); HEMOGLOBIN 14.1 GM/dL (11.7-16.9); MCH 31.3 pg (25.7-33.7); MCHC 32.5 g/dl (32.0-35.9); MEAN CELL VOLUME 96.3 fl (80-96); MEAN PLT VOLUME 8.5 fl (7.5-11.1); PLATELET COUNT 259 K/MM3 (134-434); RBC 4.49 M/mm3 (4.00-5.60); RDW 13.7 % (11.9-15.9)
--- NOTE | 2018-04-02 10:52 | CONSULT ---
[facility] Psychiatric Consult - Data Date of interview: 04/02/18 Admission source: [facility] Identifying data: Readmission to [facility] for this 42 y/o male seeking detoxification treatment on for alcohol, cocaine and cannabis dependence. Patient is , no dependents (claimed three children at a previous interview), domiciled, unemployed and deprived of income. Substance Abuse History: Confirmed by patient in this interview. Details in current [facility] report : Smoking history: Current every day smoker. Have you smoked in the past 12 months: Yes. Aproximately how many cigarettes per day: 40. Cigars Per Day: 0. Hx Chewing Tobacco Use: No. Initiated information on smoking cessation: Yes. 'Breaking Loose' booklet given: 04/01/18. - Substance & Tx. History. Hx Alcohol Use: Yes (1 gallon a day). Hx Substance Use: Yes. Substance Use Type: Cocaine ($80/day). Hx Substance Use Treatment: Yes. - Substances Abused. Alcohol. Route: Oral. Frequency: Daily. Amount used: 0.5 gallon of vodka. Age of first use: 13. Date of Last Use: 04/01/18. Cocaine. Route: Smoking. Frequency: Daily. Amount used: $80. Age of first use: 26. Date of Last Use: 03/31/18. marijuana. Route: Smoking. Frequency : Daily. Amount used: 2 blunts. Age of first use: 13. Date of Last Use: 03/31 Medical History: Hepatitis C, seizure disorder, antecedent of chlamydia and history of surgery (donated right kidney). Psychiatric History: Patient is a hostile, irritable and superficially cooperative historian. Denies history of psychiatric hospitalizations. Mr Green indicates that he has been diagnosed with PTSD and Bipolar Disorder. Used to be prescribed trazodone, abilify, zoloft and gabapentin. Non adherent with these medications. Just released from [facility] shelter. No referral for psychiatric OPD care. COURT-MANDATED for detoxification + rehabilitation treatment at [facility]. Patient denies history of suicide attempts. Physical/Sexual Abuse/Trauma History: Not discussed. Patient declines. Additional Comment: Urine Drug Screen Results: MAURO-Cocaine, MET-Methamphetamine , BZO-Benzodiazepines. Noted. Mental Status Exam - Mental Status Exam Alert and Oriented to: Time, Place, Person Cognitive Function: Good Patient Appearance: Unkempt, Disheveled Mood: Angry, Hostile, Nervous, Withdrawn, Irritable Affect: Mood Congruent, Constricted Patient Behavior: Fatigued, Guarded Speech Pattern: Clear Voice Loudness: Normal Thought Process: Goal Oriented Thought Disorder: Not Present Hallucinations: Denies Suicidal Ideation: Denies Homicidal Ideation: Denies Insight/Judgement: Poor Sleep: Poorly, Difficulty falling asleep Appetite: Good Muscle strength/Tone: Normal Gait/Station: Normal Psychiatric Findings - Problem List ([place] 1, 2,3) (1) Alcohol dependence Current Visit: Yes Status: Acute (2) Cannabis dependence Current Visit: Yes Status: Acute (3) Cocaine abuse Current Visit: Yes Status: Acute (4) Nicotine dependence Current Visit: Yes Status: Chronic (5) Substance induced mood disorder Current Visit: Yes Status: Chronic (6) Insomnia Current Visit: Yes Status: Acute (7) Non-compliant patient Current Visit: Yes Status: Chronic - Initial Treatment Plan Initial Treatment Plan: Psychoeducation. Sleep hygiene. Group, supportive therapy. Motivational rounds. Detoxification in progress. Resumed at patient 's request : abilify 5 mg po daily + trazodone 100 mg po hs. Side effects/benefits of both drugs are discussed with the patient. Made aware of risk of priapism. Mr Green agrees to this careplan. Observation.
[2018-04-02] MEDS ORDERED: ONDANSETRON *ODT* 4 MG TABLET SL PRN (10:59)
--- NOTE | 2018-04-02 10:59 | PN ---
S CIWA - CIWA Score Nausea/Vomitin-Mild Nausea/No Vomiting Muscle Tremors: 4-Moderate,w/Arms Extend Anxiety: 4-Mod. Anxious/Guarded Agitation: 4-Moderately Restless Paroxysmal Sweats: 3 Orientation: 0-Oriented Tacttile Disturbances: 0-None Auditory Disturbances: 0-None Visual Disturbances: 0-None Headache: 0-None Present CIWA-Ar Total Score: 16 BHS Progress Note (SOAP) Subjective: body aches sweats shakes interrupted sleep chills nausea Objective: 04/02/18 10:58 Vital Signs Temperature 98.6 F 04/02/18 10:08 Pulse Rate 56 L 04/02/18 10:08 Respiratory Rate 18 04/02/18 10:08 Blood Pressure 105/53 L 04/02/18 10:08 O2 Sat by Pulse Oximetry (%) Laboratory Tests 04/02/18 07:00 WBC 5.0 RBC 4.49 Hgb 14.1 Hct 43.2 D MCV 96.3 H MCH 31.3 MCHC 32.5 RDW 13.7 Plt Count 259 MPV 8.5 rest of labs pending aaox3 ambulating no acute distress Assessment: 04/02/18 10:58 withdrawal sx Plan: continue detox increase fluids labs pending wendy briseno prn
[2018-04-02 11:21] LABS: ALBUMIN 3.1 g/dl (3.4-5.0); ALK PHOS 61 U/L (45-117); ANION GAP 10 MMOL/L (8-16); BILIRUBIN,TOTAL 0.6 mg/dL (0.2-1); BLOOD UREA NITROGEN 10 mg/dL (7-18); CALCIUM 8.7 mg/dL (8.5-10.1); CHLORIDE 103 mmol/L (98-107); CO2 25 mmol/L (21-32); CREATININE 0.9 mg/dL (0.55-1.3); GLUCOSE,RANDOM 102 mg/dL (74-106); POTASSIUM 3.5 mmol/L (3.5-5.1); SGOT/AST 32 U/L (15-37); SGPT/ALT 33 U/L (13-61); SODIUM 138 mmol/L (136-145); TOT PROT 6.9 g/dl (6.4-8.2)
[2018-04-02] MEDS ORDERED: FLU VACCINE QUAD 60 MCG/0.5 ML (MDV 18-19) IM ONE (12:00)
[2018-04-02 21:30] LABS: URINE APPEARANCE SLCLOUDY; URINE BILIRUBIN NEGATIVE (<2.0 mg/dL); URINE COLOR AMBER; URINE GLUCOSE (UA) NEGATIVE (NEGATIVE); URINE KETONE TRACE (NEGATIVE); URINE LEUK ESTERASE NEGATIVE (NEGATIVE); URINE NITRITE NEGATIVE (NEGATIVE); URINE PROTEIN 2+ (NEGATIVE)
[2018-04-02 21:37] LABS: EPI CELLS RARE /HPF (FEW); URINE BACTERIA RARE /hpf (NONE SEEN); URINE HYALINE CAST 3 /lpf; URINE MUCUS MANY
[2018-04-02] MEDS: THIAMINE HCL 100 MG TABLET (FP) PO SCH (22:56)
[2018-04-02] MEDS: traZODone HCL 100 MG TABLET (FP) PO SCH (22:56)
[2018-04-03] MEDS: chlordiazePOXIDE HCL 25 MG CAPSULE PO SCH ×2 (05:14→10:33)
[2018-04-03] MEDS: ARIPiprazole 5 MG TABLET (FP) PO SCH (10:33)
[2018-04-03] MEDS: NICOTINE 21 MG/24 HOURS TOPICAL PATCH TD SCH (10:33)
[2018-04-03] MEDS: PRENATAL VITAMINS W/ FOLIC ACID TABLET (FP) PO SCH (10:33)
--- NOTE | 2018-04-03 14:43 | PN ---
[facility] CIWA - CIWA Score Nausea/Vomitin-Mild Nausea/No Vomiting Muscle Tremors: 3 Anxiety: 4-Mod. Anxious/Guarded Agitation: 5 Paroxysmal Sweats: 2 Orientation: 0-Oriented Tacttile Disturbances: 0-None Auditory Disturbances: 0-None Visual Disturbances: 0-None Headache: 0-None Present CIWA-Ar Total Score: 15 S Progress Note (SOAP) Subjective: shakes anxious Objective: 04/03/18 14:40 highly irritable Vital Signs Temperature 98.3 F 04/03/18 10:41 Pulse Rate 81 04/03/18 10:41 Respiratory Rate 18 04/03/18 10:41 Blood Pressure 131/71 04/03/18 10:41 O2 Sat by Pulse Oximetry (%) Laboratory Last Values WBC 5.0 K/mm3 (4.0-10.0) 04/02/18 07:00 RBC 4.49 M/mm3 (4.00-5.60) 04/02/18 07:00 Hgb 14.1 GM/dL (11.7-16.9) 04/02/18 07:00 Hct 43.2 % (35.4-49) D 04/02/18 07:00 MCV 96.3 fl (80-96) H 04/02/18 07:00 MCH 31.3 pg (25.7-33.7) 04/02/18 07:00 MCHC 32.5 g/dl (32.0-35.9) 04/02/18 07:00 RDW 13.7 % (11.9-15.9) 04/02/18 07:00 Plt Count 259 K/MM3 (134-434) 04/02/18 07:00 MPV 8.5 fl (7.5-11.1) 04/02/18 07:00 Sodium 138 mmol/L (136-145) 04/02/18 07:00 Potassium 3.5 mmol/L (3.5-5.1) 04/02/18 07:00 Chloride 103 mmol/L (98-107) 04/02/18 07:00 Carbon Dioxide 25 mmol/L (21-32) 04/02/18 07:00 Anion Gap 10 MMOL/L (8-16) 04/02/18 07:00 BUN 10 mg/dL (7-18) 04/02/18 07:00 Creatinine 0.9 mg/dL (0.55-1.3) 04/02/18 07:00 Creat Clearance w eGFR > 60 (>60) 04/02/18 07:00 Random Glucose 102 mg/dL (74-106) 04/02/18 07:00 Calcium 8.7 mg/dL (8.5-10.1) 04/02/18 07:00 Total Bilirubin 0.6 mg/dL (0.2-1) 04/02/18 07:00 AST 32 U/L (15-37) 04/02/18 07:00 ALT 33 U/L (13-61) 04/02/18 07:00 Alkaline Phosphatase 61 U/L (45-117) 04/02/18 07:00 Total Protein 6.9 g/dl (6.4-8.2) 04/02/18 07:00 Albumin 3.1 g/dl (3.4-5.0) L 04/02/18 07:00 Urine Color Kassandra 04/01/18 23: Urine Appearance Slcloudy 04/01/18 23: Urine pH 5.0 (5.0-8.0) 04/01/18 23: Ur Specific [place] 1.029 (1.010-1.035) 04/01/18 23: Urine Protein 2+ (NEGATIVE) H 04/01/18 23: Urine Glucose (UA) Negative (NEGATIVE) 04/01/18 23: Urine Ketones Trace (NEGATIVE) H 04/01/18 23: Urine Blood Negative (NEGATIVE) 04/01/18 23: Urine Nitrite Negative (NEGATIVE) 04/01/18 23: Urine Bilirubin Negative (<2.0 mg/dL) 04/01/18 23: Urine Urobilinogen 2.0 mg/dL (0.2-1.0) 04/01/18 23: Ur Leukocyte Esterase Negative (NEGATIVE) 04/01/18 23: Urine WBC (Auto) 5 /hpf (3-5) 04/01/18 23: Urine RBC (Auto) 2 /hpf (0-3) 04/01/18 23: Ur Epithelial Cells Rare /HPF (FEW) 04/01/18 23: Urine Bacteria Rare /hpf (NONE SEEN) 04/01/18 23:27 Hyaline Casts 3 /lpf 04/01/18 23:27 Urine Mucus Many 04/01/18 23:27 RPR Titer Nonreactive (NONREACTIVE) 04/02/18 07:00 labs noted Assessment: 04/03/18 14:42 withdrawal sx abnormal urinalysis Plan: continue detox increase hydration repeat ua in a.m
[2018-04-03] MEDS: chlordiazePOXIDE 5 MG CAPSULE PO SCH ×2 (17:43→22:11)
[2018-04-03] MEDS: THIAMINE HCL 100 MG TABLET (FP) PO SCH (22:10)
[2018-04-03] MEDS: traZODone HCL 100 MG TABLET (FP) PO SCH (22:11)
[2018-04-04] MEDS: chlordiazePOXIDE 5 MG CAPSULE PO SCH ×2 (05:38→10:39)
[2018-04-04] MEDS: ARIPiprazole 5 MG TABLET (FP) PO SCH (10:39)
[2018-04-04] MEDS: PRENATAL VITAMINS W/ FOLIC ACID TABLET (FP) PO SCH (10:39)
[2018-04-04] MEDS: NICOTINE 21 MG/24 HOURS TOPICAL PATCH TD SCH (10:39)
--- NOTE | 2018-04-04 15:46 | PN ---
[facility] Progress Note (SOAP) Subjective: feeling better no tremor less sweat stated that feeling better when taking abilify 5 mg [facility] patient requests 30 days supply of abilify to go to [facility] Objective: 04/04/18 15:44 Vital Signs Temperature 97.3 F L 04/04/18 14:14 Pulse Rate 60 04/04/18 14:14 Respiratory Rate 18 04/04/18 14:14 Blood Pressure 133/85 04/04/18 14:14 O2 Sat by Pulse Oximetry (%) Laboratory Last Values WBC 5.0 K/mm3 (4.0-10.0) 04/02/18 07:00 RBC 4.49 M/mm3 (4.00-5.60) 04/02/18 07:00 Hgb 14.1 GM/dL (11.7-16.9) 04/02/18 07:00 Hct 43.2 % (35.4-49) D 04/02/18 07:00 MCV 96.3 fl (80-96) H 04/02/18 07:00 MCH 31.3 pg (25.7-33.7) 04/02/18 07:00 MCHC 32.5 g/dl (32.0-35.9) 04/02/18 07:00 RDW 13.7 % (11.9-15.9) 04/02/18 07:00 Plt Count 259 K/MM3 (134-434) 04/02/18 07:00 MPV 8.5 fl (7.5-11.1) 04/02/18 07:00 Sodium 138 mmol/L (136-145) 04/02/18 07:00 Potassium 3.5 mmol/L (3.5-5.1) 04/02/18 07:00 Chloride 103 mmol/L (98-107) 04/02/18 07:00 Carbon Dioxide 25 mmol/L (21-32) 04/02/18 07:00 Anion Gap 10 MMOL/L (8-16) 04/02/18 07:00 BUN 10 mg/dL (7-18) 04/02/18 07:00 Creatinine 0.9 mg/dL (0.55-1.3) 04/02/18 07:00 Creat Clearance w eGFR > 60 (>60) 04/02/18 07:00 Random Glucose 102 mg/dL (74-106) 04/02/18 07:00 Calcium 8.7 mg/dL (8.5-10.1) 04/02/18 07:00 Total Bilirubin 0.6 mg/dL (0.2-1) 04/02/18 07:00 AST 32 U/L (15-37) 04/02/18 07:00 ALT 33 U/L (13-61) 04/02/18 07:00 Alkaline Phosphatase 61 U/L (45-117) 04/02/18 07:00 Total Protein 6.9 g/dl (6.4-8.2) 04/02/18 07:00 Albumin 3.1 g/dl (3.4-5.0) L 04/02/18 07:00 Urine Color Kassandra 04/01/18 23:27 Urine Appearance Slcloudy 04/01/18 23: Urine pH 5.0 (5.0-8.0) 04/01/18 23: Ur Specific [place] 1.029 (1.010-1.035) 04/01/18 23: Urine Protein 2+ (NEGATIVE) H 04/01/18 23: Urine Glucose (UA) Negative (NEGATIVE) 04/01/18 23: Urine Ketones Trace (NEGATIVE) H 04/01/18 23: Urine Blood Negative (NEGATIVE) 04/01/18 23: Urine Nitrite Negative (NEGATIVE) 04/01/18 23: Urine Bilirubin Negative (<2.0 mg/dL) 04/01/18 23: Urine Urobilinogen 2.0 mg/dL (0.2-1.0) 04/01/18 23: Ur Leukocyte Esterase Negative (NEGATIVE) 04/01/18 23: Urine WBC (Auto) 5 /hpf (3-5) 04/01/18 23: Urine RBC (Auto) 2 /hpf (0-3) 04/01/18 23: Ur Epithelial Cells Rare /HPF (FEW) 04/01/18 23: Urine Bacteria Rare /hpf (NONE SEEN) 04/01/18 23: Hyaline Casts 3 /lpf 04/01/18 23: Urine Mucus Many 04/01/18 23: RPR Titer Nonreactive (NONREACTIVE) 04/02/18 07:00 lab noted Assessment: 04/04/18 15:45 mild withdrawal sx Plan: medically supervised detox
[2018-04-04] MEDS: chlordiazePOXIDE HCL 10 MG CAPSULE PO SCH ×2 (18:21→22:38)
[2018-04-04] MEDS: THIAMINE HCL 100 MG TABLET (FP) PO SCH (22:38)
[2018-04-04] MEDS: traZODone HCL 100 MG TABLET (FP) PO SCH (22:38)
[2018-04-05] MEDS: chlordiazePOXIDE HCL 10 MG CAPSULE PO SCH (05:37)
[2018-04-05 08:10] VITALS: BP 115/68; PULSE 51; TEMP 97.5
--- NOTE | 2018-04-05 09:21 | DS ---
[facility] Detox Discharge Summary Admission Date: 04/01/18 Discharge Date: 04/05/18 - History Present History: Alcohol Dependence, Cannabis Dependence, Cocaine Dependence - Physical Exam Results Vital Signs: Vital Signs Temperature 97.5 F L 04/05/18 08:09 Pulse Rate 51 L 04/05/18 08:09 Respiratory Rate 20 04/05/18 08:09 Blood Pressure 115/68 04/05/18 08:09 O2 Sat by Pulse Oximetry (%) - Treatment Hospital Course: Detox Protocol Followed, Detoxed Safely, Responded well, Discharged Condition Good, Rehab Referral Accepted - Medication Discharge Medications: Ambulatory Orders Trazodone HCl 150 mg PO HS #30 tablet 05/26/17 Aspirin Coated [Ecotrin -] 325 mg PO Q4H PRN #30 tablet.dr 05/27/17 Chlorhexidine Gluconate 15 ml PO BID #1 mouthwash 05/27/17 Gabapentin [Neurontin -] 600 mg PO TID #90 capsule 05/27/17 Pantoprazole Sodium [Protonix -] 40 mg PO DAILY #30 tablet.ec 05/27/17 Aripiprazole [Abilify -] 5 mg PO DAILY 04/04/18 - Diagnosis (1) Abnormal urinalysis Status: Acute (2) Alcohol dependence Status: Acute (3) Cannabis dependence Status: Acute (4) Cocaine abuse Status: Acute (5) Cocaine abuse Status: Acute (6) Insomnia Status: Acute (7) Epilepsy Status: Chronic (8) Hepatitis C Status: Chronic (9) Nicotine dependence Status: Chronic (10) Non-compliant patient Status: Chronic (11) PTSD (post-traumatic stress disorder) Status: Chronic (12) Substance induced mood disorder Status: Chronic (13) Bipolar disorder Status: Ruled-out - AMA Did Patient Leave Against Medical Advice: No (going home)
== END 2018-04-05 07:33 | disposition other institution (70) | DRG 774 ==
LOC: YASAS 13:29 → Y6N 17:24
PROC: HZ2ZZZZ Detoxification Services for Substance Abuse Treatment (ICD-10-PCS; principal; 2018-04-01)
DX: F10.20 Alcohol dependence, uncomplicated (principal); F14.20 Cocaine dependence, uncomplicated; F12.20 Cannabis dependence, uncomplicated; F17.210 Nicotine dependence, cigarettes, uncomplicated; F19.24 Other psychoactive substance dependence with psychoactive substance-induced mood disorder; F43.10 Post-traumatic stress disorder, unspecified; G47.00 Insomnia, unspecified; G40.909 Epilepsy, unspecified, not intractable, without status epilepticus; B18.2 Chronic viral hepatitis C; R82.90 Unspecified abnormal findings in urine; Z52.4 Kidney donor; Z88.0 Allergy status to penicillin; Z59.0 Homelessness; Z91.19 Patient's noncompliance with other medical treatment and regimen
CPT/HCPCS: 36415; 80053; 81003; 81015; 85027; 86593; 90688; G0008

== ENCOUNTER 2018-04-05 08:59 | Inpatient (IN) | payer OTHER ==
--- NOTE | 2018-04-05 09:18 | DS ---
[facility] Detox Discharge Summary Discharge Date: 04/05/18 - History Present History: Alcohol Dependence, Cannabis Dependence, Cocaine Dependence - Treatment Hospital Course: Detox Protocol Followed, Detoxed Safely, Responded well, Discharged Condition Good, Rehab Referral Accepted - Medication Discharge Medications: Ambulatory Orders Trazodone HCl 150 mg PO HS #30 tablet 05/26/17 Aspirin Coated [Ecotrin -] 325 mg PO Q4H PRN #30 tablet. 05/27/17 Chlorhexidine Gluconate 15 ml PO BID #1 mouthwash 05/27/17 Gabapentin [Neurontin -] 600 mg PO TID #90 capsule 05/27/17 Pantoprazole Sodium [Protonix -] 40 mg PO DAILY #30 tablet.ec 05/27/17 Aripiprazole [Abilify -] 5 mg PO DAILY 04/04/18 - AMA Did Patient Leave Against Medical Advice: No
[2018-04-05 09:35] VITALS: BMI 32.8
--- NOTE | 2018-04-05 09:37 | HP ---
[facility] Rehab Assess/Revision - Admission History Admitted to Rehab from: [facility] Date of Admission to Rehab: 04/05/18 - Vital signs Vital Signs: Vital Signs Period Temp Pulse Resp BP Sys/Salazar Pulse Ox Last 24 Hr 96.6 F 58 17 120/72 - Findings Detox History & Physical reviewed: Yes Concur with findings: Yes Comments/Additional Findings: for rehab as protocol. patient was admitted for detox from 04/01/18 to 04/05/18 Inpatient Rehab Admission - Initial Determination Are CD services needed?: Yes Free of communicable disease: Yes Not in need of hospitalization: Yes - Rehab Admission Criteria Previous failed treatment: Yes Poor recovery environment: Yes Comorbidities: Yes Lacks judgement: No Patient is meeting Inpatient Rehab admission criteria:: Yes
[2018-04-05] MEDS ORDERED: MAGNESIUM CITRATE 300 ML BOTTLE PO PRN (09:39)
[2018-04-05] MEDS ORDERED: MAG HYDROX/AL HYDROX/SIMETH 30 ML UNIT-DOSE CUP PO PRN (09:39)
[2018-04-05] MEDS ORDERED: MAGNESIUM HYDROX 2400MG/30ML ORAL SUSPENSION 30 ML CUP PO PRN (09:39)
[2018-04-05] MEDS: NICOTINE 21 MG/24 HOURS TOPICAL PATCH TD SCH (14:11)
[2018-04-05] MEDS: PRENATAL VITAMINS W/ FOLIC ACID TABLET (FP) PO SCH (14:11)
--- NOTE | 2018-04-05 14:27 | HP ---
Psychiatrist Admission - Data Date of interview: 04/05/18 Admission source: Transfer from [address] [place] [address]. Court-mandated Identifying data: Case of a 42 y/o male who completed detoxification treatment at [address] [place] [address], now transferred to [address] for rehabilitation to address alcohol, cocaine and cannabis dependence. Patient is , no dependents (claimed three children at a previous interview), domiciled, unemployed and deprived of income. Medical History: Remarkable for hepatitis C, seizure disorder, antecedent of chlamydia and history of surgery (donated right kidney). Psychiatric History: Patient is already known to this short story writer from [address] [place] [address]. No changes in psychiatric history collected from the patient on 04/01/18. Mr Norma denies history of psychiatric hospitalizations. Endorses the diagnoses of PTSD and Bipolar Disorder. Patient used to be prescribed trazodone, abilify, zoloft and gabapentin. Non adherent with these medications. Declares that he has just been released from [facility] retirement (02/22/18) after serving six months. No referral for psychiatric OPD care. COURT-MANDATED for detoxification + rehabilitation treatment at [facility]. Patient denies history of suicide attempts. Physical/Sexual Abuse/Trauma History: Patient denies. Additional Comment: Profile of substance abuse : discussed in this session. Details in current [facility] report : Smoking history: Current every day smoker. Have you smoked in the past 12 months: Yes. Aproximately how many cigarettes per day: 50. Hx Chewing Tobacco Use: No. Initiated information on smoking cessation: Yes. 'Breaking Loose' booklet given: 04/29/17. - Substance & Tx. History. Hx Alcohol Use: Yes. Hx Substance Use: Yes. Substance Use Type: Alcohol, Cocaine. Hx Substance Use Treatment: Yes ([facility]). - Substances Abused. Alcohol. Route: Oral. Frequency: Daily. Amount used: 1 /2 gal of vodka. Age of first use: 13. Date of Last Use: 04/29/17. Cocaine. Route: Inhalation. Frequency: 1-3 times last 30 days. Amount used: 1 bag. Age of first use: 39. Date of Last Use: 04/28/17. Marijuana/ Hashish. Route: Smoking. Frequency: 1-2 times per week. Amount used: $30. Age of first use: 13. Date of Last Use: 04/22/17. Urine Drug Screen Results: MAURO-Cocaine, BZO-Benzodiazepines. Noted. Vital Signs: Vital Signs - 24 hr 04/05/18 09:32 Temperature 96.6 F L Pulse Rate 58 L Respiratory 17 Rate Blood Pressure 120/72 Allergies/Adverse Reactions: Allergies Allergy/AdvReac Type Severity Reaction Status Date / Time Penicillins Allergy Severe Swelling Verified 04/05/18 16:02 - Substance Abuse/Tx History Hx Alcohol Use: Yes (since age 13) Hx Substance Use: Yes (alcohol, crack/cocaine, cannabis) Substance Use Type: Alcohol (consumes 1/2 gallon of vodka daily), Cocaine ( spends an average of 40 dollars/day on crack/cocaine ; patient states he started using crack this month), Marijuana (started using cannabis at age 13 ; 1 -3 times a week) Hx Substance Use Treatment: Yes ([facility] and [facility] ) Mental Status Exam - Mental Status Exam Alert and Oriented to: Time, Place, Person Cognitive Function: Good Patient Appearance: Well Groomed Mood: Hopeful, Euthymic Affect: Appropriate, Normal Range Patient Behavior: Cooperative Speech Pattern: Clear Voice Loudness: Normal Thought Process: Goal Oriented Thought Disorder: Not Present Hallucinations: Denies Suicidal Ideation: Denies Homicidal Ideation: Denies Insight/Judgement: Fair Sleep: Poorly, Difficulty falling asleep Appetite: Good Muscle strength/Tone: Normal Gait/Station: Normal Psychiatric Findings - Problem List ([place] 1, 2,3) (1) Alcohol dependence Current Visit: Yes Status: Acute (2) Cannabis dependence Current Visit: Yes Status: Acute (3) Cocaine abuse Current Visit: Yes Status: Acute (4) Nicotine dependence Current Visit: Yes Status: Chronic (5) Non-compliant patient Current Visit: Yes Status: Chronic (6) Substance induced mood disorder Current Visit: Yes Status: Chronic (7) Mood disorder Current Visit: Yes Status: Chronic (8) Insomnia Current Visit: Yes Status: Acute - Initial Treatment Plan Initial Treatment Plan: Psychoeducation. Sleep hygiene. Psychotherapy ( supportive + group + individual). AA meetings. Medications : trazodone 100 mg po hs + abilify 5 mg po daily + gabapentin 300 mg po tid. Side effects/benefits discussed with the patient. Mr Green is in agreement with this plan of care. Observation.
[2018-04-05] MEDS: GABAPENTIN 300 MG CAPSULE (FP) PO SCH (21:40)
[2018-04-05] MEDS: traZODone HCL 50 MG TABLET (FP) PO SCH (21:40)
[2018-04-05] MEDS: THIAMINE HCL 100 MG TABLET (FP) PO SCH (21:40)
[2018-04-05] MEDS ORDERED: MELATONIN 5 MG TABLETS PO PRN (22:00)
[2018-04-06] MEDS: GABAPENTIN 300 MG CAPSULE (FP) PO SCH ×3 (06:26→21:44)
[2018-04-06] MEDS: ARIPiprazole 5 MG TABLET (FP) PO SCH (10:50)
[2018-04-06] MEDS: PRENATAL VITAMINS W/ FOLIC ACID TABLET (FP) PO SCH (10:50)
[2018-04-06] MEDS: PANTOPRAZOLE 40 MG TABLET (FP) PO SCH (10:50)
[2018-04-06] MEDS: NICOTINE 21 MG/24 HOURS TOPICAL PATCH TD SCH (10:51)
[2018-04-06] MEDS: guaiFENesin/D-METHORPHAN HB 10 ML UNIT-DOSE CUPS PO PRN (18:42)
[2018-04-06] MEDS: traZODone HCL 50 MG TABLET (FP) PO SCH (21:43)
[2018-04-06] MEDS: THIAMINE HCL 100 MG TABLET (FP) PO SCH (21:43)
[2018-04-07] MEDS: GABAPENTIN 300 MG CAPSULE (FP) PO SCH ×3 (06:03→21:39)
[2018-04-07] MEDS: guaiFENesin/D-METHORPHAN HB 10 ML UNIT-DOSE CUPS PO PRN (06:58)
[2018-04-07] MEDS: PANTOPRAZOLE 40 MG TABLET (FP) PO SCH (10:55)
[2018-04-07] MEDS: PRENATAL VITAMINS W/ FOLIC ACID TABLET (FP) PO SCH (10:55)
[2018-04-07] MEDS: NICOTINE 21 MG/24 HOURS TOPICAL PATCH TD SCH (10:55)
[2018-04-07] MEDS: ARIPiprazole 5 MG TABLET (FP) PO SCH (10:56)
[2018-04-07] MEDS: MENTHOL/PHENOL 1 EACH UD MM PRN (10:57)
--- NOTE | 2018-04-07 11:03 | PN ---
[facility] Progress Note Note: Pt states he received 2 Hep B vaccines at [facility] and needs #3 in April. D/w pt to talk to counselor about finding him a primary care doctor in [place], where he lives to be able to also give him the vaccine- pt said he will f/u with counselor
[2018-04-07] MEDS: traZODone HCL 50 MG TABLET (FP) PO SCH (21:39)
[2018-04-07] MEDS: THIAMINE HCL 100 MG TABLET (FP) PO SCH (21:39)
[2018-04-08] MEDS: GABAPENTIN 300 MG CAPSULE (FP) PO SCH ×3 (06:14→21:27)
[2018-04-08] MEDS: IBUPROFEN 400 MG TABLET (FP) PO PRN (08:49)
[2018-04-08] MEDS: LOPERAMIDE HCL 2 MG CAPSULE PO PRN ×2 (08:49→21:27)
[2018-04-08] MEDS: PRENATAL VITAMINS W/ FOLIC ACID TABLET (FP) PO SCH (10:38)
[2018-04-08] MEDS: NICOTINE 21 MG/24 HOURS TOPICAL PATCH TD SCH (10:38)
[2018-04-08] MEDS: ARIPiprazole 5 MG TABLET (FP) PO SCH (10:38)
[2018-04-08] MEDS: PANTOPRAZOLE 40 MG TABLET (FP) PO SCH (10:38)
[2018-04-08] MEDS: traZODone HCL 50 MG TABLET (FP) PO SCH (21:27)
[2018-04-08] MEDS: THIAMINE HCL 100 MG TABLET (FP) PO SCH (21:27)
[2018-04-09] MEDS: MENTHOL/PHENOL 1 EACH UD MM PRN ×2 (06:11→21:41)
[2018-04-09] MEDS: GABAPENTIN 300 MG CAPSULE (FP) PO SCH ×3 (06:11→21:39)
[2018-04-09] MEDS: ARIPiprazole 5 MG TABLET (FP) PO SCH (10:20)
[2018-04-09] MEDS: PANTOPRAZOLE 40 MG TABLET (FP) PO SCH (10:20)
[2018-04-09] MEDS: NICOTINE 21 MG/24 HOURS TOPICAL PATCH TD SCH (10:20)
[2018-04-09] MEDS: PRENATAL VITAMINS W/ FOLIC ACID TABLET (FP) PO SCH (10:20)
[2018-04-09] MEDS: LOPERAMIDE HCL 2 MG CAPSULE PO PRN (10:21)
--- NOTE | 2018-04-09 14:41 | PN ---
Psychiatric Progress Note Vital Signs: Vital Signs Period Temp Pulse Resp BP Sys/Salazar Pulse Ox Last 24 Hr 98.4 F 64 17-18 121/76 Date of Session: 04/09/18 Chief Complaint:: " I want my zoloft ". Current Medications: Active Medications Generic Name Dose Route Start Last Admin Trade Name Freq PRN Reason Stop Dose Admin Acetaminophen 650 mg 04/05/18 09:39 Tylenol - PO Q4H PRN FEVER Al Hydroxide/Mg Hydroxide 30 ml 04/05/18 09:39 Mylanta Oral Suspension - PO Q6H PRN DYSPEPSIA Aripiprazole 5 mg 04/06/18 10:00 04/09/18 10:20 Abilify PO 5 mg DAILY UNA Administration Eucalyptus/Menthol/Phenol/Sorbitol 1 each 04/05/18 09:39 04/09/18 06:11 Cepastat Lozenge - MM 1 each Q4H PRN Administration SORE THROAT Gabapentin 300 mg 04/05/18 22:00 04/09/18 14:24 Neurontin - PO 300 mg TID UNA Administration Guaifenesin 10 ml 04/05/18 09:39 04/07/18 06:58 Robitussin Dm - PO 10 ml Q6H PRN Administration COUGH Ibuprofen 400 mg 04/05/18 09:39 04/08/18 08:49 Motrin - PO 400 mg Q6H PRN Administration Pain Level 4-6 Loperamide HCl 4 mg 04/05/18 09:39 04/09/18 10:21 Imodium - PO 4 mg Q6H PRN Administration DIARRHEA Magnesium Citrate 300 ml 04/05/18 09:39 Citroma - PO Q48H PRN CONSTIPATION Magnesium Hydroxide 30 ml 04/05/18 09:39 Milk Of Magnesia - PO DAILY PRN CONSTIPATION Nicotine 21 mg 04/05/18 11:45 04/09/18 10:20 Nicoderm Patch - TD 21 mg DAILY UNA Administration Pantoprazole Sodium 40 mg 04/06/18 10:00 04/09/18 10:20 Protonix - PO 40 mg DAILY UNA Administration Multivit/Folic Acid/Iron 1 tab 04/05/18 11:45 04/09/18 10:20 Vitamins (Sjr) - PO 1 tab DAILY UNA Administration Pseudoephedrine/Triprolidine 1 combo 04/05/18 09:39 Actifed - PO TID PRN NASAL CONGESTION Thiamine HCl 100 mg 04/05/18 22:00 04/08/18 21:27 Vitamin B1 - PO 100 mg HS UNA Administration Trazodone HCl 150 mg 04/05/18 22:00 04/08/18 21:27 Desyrel - PO 150 mg HS UNA Administration Psychiatric Treatment Plan - Problem List (1) Alcohol dependence Current Visit: Yes (2) Cannabis dependence Current Visit: Yes (3) Cocaine abuse Current Visit: Yes (4) Nicotine dependence Current Visit: Yes (5) Non-compliant patient Current Visit: Yes (6) Substance induced mood disorder Current Visit: Yes (7) Mood disorder Current Visit: Yes (8) Insomnia Current Visit: Yes
[2018-04-09] MEDS: IBUPROFEN 400 MG TABLET (FP) PO PRN (21:39)
[2018-04-09] MEDS: THIAMINE HCL 100 MG TABLET (FP) PO SCH (21:39)
[2018-04-09] MEDS: traZODone HCL 50 MG TABLET (FP) PO SCH (21:39)
[2018-04-10] MEDS: GABAPENTIN 300 MG CAPSULE (FP) PO SCH ×3 (06:23→22:03)
[2018-04-10] MEDS: PANTOPRAZOLE 40 MG TABLET (FP) PO SCH (10:46)
[2018-04-10] MEDS: ARIPiprazole 5 MG TABLET (FP) PO SCH (10:46)
[2018-04-10] MEDS: PRENATAL VITAMINS W/ FOLIC ACID TABLET (FP) PO SCH (10:46)
[2018-04-10] MEDS: NICOTINE 21 MG/24 HOURS TOPICAL PATCH TD SCH (11:08)
[2018-04-10] MEDS: traZODone HCL 50 MG TABLET (FP) PO SCH (22:02)
[2018-04-10] MEDS: THIAMINE HCL 100 MG TABLET (FP) PO SCH (22:02)
[2018-04-11] MEDS: GABAPENTIN 300 MG CAPSULE (FP) PO SCH ×3 (06:22→21:46)
[2018-04-11] MEDS: MENTHOL/PHENOL 1 EACH UD MM PRN ×2 (06:22→21:46)
[2018-04-11] MEDS: NICOTINE 21 MG/24 HOURS TOPICAL PATCH TD SCH (10:21)
[2018-04-11] MEDS: ARIPiprazole 5 MG TABLET (FP) PO SCH (10:22)
[2018-04-11] MEDS: PANTOPRAZOLE 40 MG TABLET (FP) PO SCH (10:22)
[2018-04-11] MEDS: PRENATAL VITAMINS W/ FOLIC ACID TABLET (FP) PO SCH (10:22)
[2018-04-11] MEDS: THIAMINE HCL 100 MG TABLET (FP) PO SCH (21:45)
[2018-04-11] MEDS: traZODone HCL 50 MG TABLET (FP) PO SCH (21:46)
[2018-04-12] MEDS: GABAPENTIN 300 MG CAPSULE (FP) PO SCH ×3 (07:22→21:49)
[2018-04-12] MEDS: MENTHOL/PHENOL 1 EACH UD MM PRN ×2 (07:23→14:09)
[2018-04-12] MEDS: ARIPiprazole 5 MG TABLET (FP) PO SCH (10:17)
[2018-04-12] MEDS: PRENATAL VITAMINS W/ FOLIC ACID TABLET (FP) PO SCH (10:17)
[2018-04-12] MEDS: PANTOPRAZOLE 40 MG TABLET (FP) PO SCH (10:17)
[2018-04-12] MEDS: NICOTINE 21 MG/24 HOURS TOPICAL PATCH TD SCH (10:18)
[2018-04-12] MEDS: P-EPHED 60MG/TRIPROLIDI 2.5MG TABLET PO PRN (10:19)
--- NOTE | 2018-04-12 12:11 | PN ---
BHS Progress Note Note: PATIENT C/O HEMORRHOIDS AND PAIN WHEN WIPING AFTER BM. PATIENT DENIES RECTAL BLEEDING. ALERT AND ORIENTED X 3, IN NO ACUTE DISTRESS, AMB AD ALEE. WILL ORDER ANUSOL CREAM TO RECTAL AREA BID AND CONTINUE TO MONITOR.. Vital Signs Temperature 97.8 F 04/12/18 07:23 Pulse Rate 63 04/12/18 07:23 Respiratory Rate 16 04/12/18 07:23 Blood Pressure 123/69 04/12/18 07:23 O2 Sat by Pulse Oximetry (%)
[2018-04-12] MEDS: HYDROCORTISONE 2.5% TOPICAL CREAM 30 GM TUBE TP SCH ×2 (14:18→21:50)
[2018-04-12] MEDS: THIAMINE HCL 100 MG TABLET (FP) PO SCH (21:48)
[2018-04-12] MEDS: traZODone HCL 50 MG TABLET (FP) PO SCH (21:49)
[2018-04-13] MEDS: MENTHOL/PHENOL 1 EACH UD MM PRN ×2 (02:30→21:49)
[2018-04-13] MEDS: GABAPENTIN 300 MG CAPSULE (FP) PO SCH ×3 (06:14→21:49)
[2018-04-13] MEDS: guaiFENesin/D-METHORPHAN HB 10 ML UNIT-DOSE CUPS PO PRN (06:46)
[2018-04-13] MEDS: PRENATAL VITAMINS W/ FOLIC ACID TABLET (FP) PO SCH (10:50)
[2018-04-13] MEDS: ARIPiprazole 5 MG TABLET (FP) PO SCH (10:50)
[2018-04-13] MEDS: HYDROCORTISONE 2.5% TOPICAL CREAM 30 GM TUBE TP SCH ×2 (10:50→22:31)
[2018-04-13] MEDS: PANTOPRAZOLE 40 MG TABLET (FP) PO SCH (10:50)
[2018-04-13] MEDS: NICOTINE 21 MG/24 HOURS TOPICAL PATCH TD SCH (10:51)
[2018-04-13] MEDS: traZODone HCL 50 MG TABLET (FP) PO SCH (21:49)
[2018-04-13] MEDS: THIAMINE HCL 100 MG TABLET (FP) PO SCH (21:49)
[2018-04-14] MEDS: GABAPENTIN 300 MG CAPSULE (FP) PO SCH ×3 (06:12→21:46)
[2018-04-14] MEDS: guaiFENesin/D-METHORPHAN HB 10 ML UNIT-DOSE CUPS PO PRN ×2 (06:13→21:47)
[2018-04-14] MEDS: NICOTINE 21 MG/24 HOURS TOPICAL PATCH TD SCH (10:35)
[2018-04-14] MEDS: ARIPiprazole 5 MG TABLET (FP) PO SCH (10:36)
[2018-04-14] MEDS: PRENATAL VITAMINS W/ FOLIC ACID TABLET (FP) PO SCH (10:36)
[2018-04-14] MEDS: PANTOPRAZOLE 40 MG TABLET (FP) PO SCH (10:36)
[2018-04-14] MEDS: HYDROCORTISONE 2.5% TOPICAL CREAM 30 GM TUBE TP SCH ×2 (10:38→21:46)
[2018-04-14] MEDS: MENTHOL/PHENOL 1 EACH UD MM PRN ×2 (10:39→21:48)
[2018-04-14] MEDS: THIAMINE HCL 100 MG TABLET (FP) PO SCH (21:46)
[2018-04-14] MEDS: traZODone HCL 50 MG TABLET (FP) PO SCH (21:46)
[2018-04-15] MEDS: GABAPENTIN 300 MG CAPSULE (FP) PO SCH ×3 (06:14→21:59)
[2018-04-15] MEDS: ACETAMINOPHEN 325 MG TABLET (FP) PO PRN ×2 (06:14→14:16)
[2018-04-15] MEDS: guaiFENesin/D-METHORPHAN HB 10 ML UNIT-DOSE CUPS PO PRN (09:43)
[2018-04-15] MEDS: PRENATAL VITAMINS W/ FOLIC ACID TABLET (FP) PO SCH (09:44)
[2018-04-15] MEDS: ARIPiprazole 5 MG TABLET (FP) PO SCH (09:44)
[2018-04-15] MEDS: HYDROCORTISONE 2.5% TOPICAL CREAM 30 GM TUBE TP SCH ×2 (09:44→22:28)
[2018-04-15] MEDS: NICOTINE 21 MG/24 HOURS TOPICAL PATCH TD SCH (09:44)
[2018-04-15] MEDS: PANTOPRAZOLE 40 MG TABLET (FP) PO SCH (09:44)
--- NOTE | 2018-04-15 12:43 | PN ---
S Progress Note Note: PATIENT SEEN FOR FEVER. C/O SORE THROAT, BODY ACHES, DRY COUGH AND NASAL CONGESTION. DENIES CP, SOB AND DIZZINESS. Vital Signs Temperature 98.6 F 04/15/18 10:00 Pulse Rate 88 04/15/18 07:01 Respiratory Rate 20 04/15/18 07:01 Blood Pressure 129/58 L 04/15/18 07:01 O2 Sat by Pulse Oximetry (%) PE; ALERT AND ORIENTED X 3 SKIN +FLUSHING, WARM CAR S1S2 RESP CTA BL, NO WHEEZING OR RALES THROAT NO VISIBLE EXUDATE EXT FULL ROM, AMB AD ALEE A/P: FEVER URI CHECK CBC IN AM ENCOURAGE ORAL FLUIDS MOTRIN/APAP PRN START ZPAK ACTIFED PER PRN ORDER CONTINUE TO MONITOR CLINICALLY
[2018-04-15] MEDS ORDERED: AZITHROMYCIN 500 MG TABLET PO ONE (13:00)
[2018-04-15] MEDS: IBUPROFEN 400 MG TABLET (FP) PO PRN (21:59)
[2018-04-15] MEDS: traZODone HCL 50 MG TABLET (FP) PO SCH (21:59)
[2018-04-15] MEDS: THIAMINE HCL 100 MG TABLET (FP) PO SCH (21:59)
[2018-04-15] MEDS: P-EPHED 60MG/TRIPROLIDI 2.5MG TABLET PO PRN (22:01)
[2018-04-16] MEDS: guaiFENesin/D-METHORPHAN HB 10 ML UNIT-DOSE CUPS PO PRN (06:31)
[2018-04-16] MEDS: ACETAMINOPHEN 325 MG TABLET (FP) PO PRN (06:31)
[2018-04-16] MEDS: GABAPENTIN 300 MG CAPSULE (FP) PO SCH ×3 (06:31→21:53)
[2018-04-16 10:31] LABS: BASO % 0.5 % (0-2.0); HEMATOCRIT 42.5 % (35.4-49); LYMPH % 20.8 % (8-40); MCH 33.4 pg (25.7-33.7); MCHC 35.3 g/dl (32.0-35.9); MEAN CELL VOLUME 94.7 fl (80-96); MEAN PLT VOLUME 8.5 fl (7.5-11.1); MONO % 16.5 % (3.8-10.2); NEUT % 58.2 % (42.8-82.8); PLATELET COUNT 256 K/MM3 (134-434); RBC 4.49 M/mm3 (4.00-5.60); RDW 13.9 % (11.9-15.9); WHITE BLOOD COUNT 8.9 K/mm3 (4.0-10.0)
[2018-04-16] MEDS: HYDROCORTISONE 2.5% TOPICAL CREAM 30 GM TUBE TP SCH ×2 (11:06→22:06)
[2018-04-16] MEDS: NICOTINE 21 MG/24 HOURS TOPICAL PATCH TD SCH (11:06)
[2018-04-16] MEDS: AZITHROMYCIN 250 MG TABLET PO SCH (11:06)
[2018-04-16] MEDS: ARIPiprazole 5 MG TABLET (FP) PO SCH (11:06)
[2018-04-16] MEDS: PANTOPRAZOLE 40 MG TABLET (FP) PO SCH (11:06)
[2018-04-16] MEDS: PRENATAL VITAMINS W/ FOLIC ACID TABLET (FP) PO SCH (11:07)
[2018-04-16] MEDS: THIAMINE HCL 100 MG TABLET (FP) PO SCH (21:53)
[2018-04-16] MEDS: traZODone HCL 50 MG TABLET (FP) PO SCH (21:53)
[2018-04-16] MEDS: MENTHOL/PHENOL 1 EACH UD MM PRN (21:54)
[2018-04-17] MEDS: GABAPENTIN 300 MG CAPSULE (FP) PO SCH ×3 (05:50→21:53)
[2018-04-17] MEDS: guaiFENesin/D-METHORPHAN HB 10 ML UNIT-DOSE CUPS PO PRN (05:52)
[2018-04-17] MEDS: IBUPROFEN 400 MG TABLET (FP) PO PRN (05:52)
[2018-04-17] MEDS: PANTOPRAZOLE 40 MG TABLET (FP) PO SCH (10:36)
[2018-04-17] MEDS: PRENATAL VITAMINS W/ FOLIC ACID TABLET (FP) PO SCH (10:36)
[2018-04-17] MEDS: NICOTINE 21 MG/24 HOURS TOPICAL PATCH TD SCH (10:36)
[2018-04-17] MEDS: ARIPiprazole 5 MG TABLET (FP) PO SCH (10:36)
[2018-04-17] MEDS: AZITHROMYCIN 250 MG TABLET PO SCH (10:37)
[2018-04-17] MEDS: HYDROCORTISONE 2.5% TOPICAL CREAM 30 GM TUBE TP SCH ×2 (10:38→21:54)
[2018-04-17] MEDS: MENTHOL/PHENOL 1 EACH UD MM PRN ×2 (14:15→21:55)
[2018-04-17] MEDS: THIAMINE HCL 100 MG TABLET (FP) PO SCH (21:53)
[2018-04-17] MEDS: traZODone HCL 50 MG TABLET (FP) PO SCH (21:53)
[2018-04-18] MEDS: GABAPENTIN 300 MG CAPSULE (FP) PO SCH ×3 (06:11→21:51)
[2018-04-18] MEDS: guaiFENesin/D-METHORPHAN HB 10 ML UNIT-DOSE CUPS PO PRN (06:12)
[2018-04-18] MEDS: PRENATAL VITAMINS W/ FOLIC ACID TABLET (FP) PO SCH (10:15)
[2018-04-18] MEDS: PANTOPRAZOLE 40 MG TABLET (FP) PO SCH (10:15)
[2018-04-18] MEDS: NICOTINE 21 MG/24 HOURS TOPICAL PATCH TD SCH (10:15)
[2018-04-18] MEDS: HYDROCORTISONE 2.5% TOPICAL CREAM 30 GM TUBE TP SCH ×2 (10:15→21:52)
[2018-04-18] MEDS: ARIPiprazole 5 MG TABLET (FP) PO SCH (10:15)
[2018-04-18] MEDS: AZITHROMYCIN 250 MG TABLET PO SCH (10:16)
[2018-04-18] MEDS: traZODone HCL 50 MG TABLET (FP) PO SCH (21:51)
[2018-04-18] MEDS: THIAMINE HCL 100 MG TABLET (FP) PO SCH (21:51)
[2018-04-19] MEDS: guaiFENesin/D-METHORPHAN HB 10 ML UNIT-DOSE CUPS PO PRN ×2 (06:19→21:44)
[2018-04-19] MEDS: GABAPENTIN 300 MG CAPSULE (FP) PO SCH ×3 (06:19→21:43)
[2018-04-19] MEDS: ARIPiprazole 5 MG TABLET (FP) PO SCH (10:28)
[2018-04-19] MEDS: PANTOPRAZOLE 40 MG TABLET (FP) PO SCH (10:28)
[2018-04-19] MEDS: AZITHROMYCIN 250 MG TABLET PO SCH (10:28)
[2018-04-19] MEDS: PRENATAL VITAMINS W/ FOLIC ACID TABLET (FP) PO SCH (10:28)
[2018-04-19] MEDS: HYDROCORTISONE 2.5% TOPICAL CREAM 30 GM TUBE TP SCH ×2 (10:29→22:11)
[2018-04-19] MEDS: NICOTINE 21 MG/24 HOURS TOPICAL PATCH TD SCH (10:29)
[2018-04-19] MEDS: THIAMINE HCL 100 MG TABLET (FP) PO SCH (21:43)
[2018-04-19] MEDS: traZODone HCL 50 MG TABLET (FP) PO SCH (22:11)
[2018-04-20] MEDS: guaiFENesin/D-METHORPHAN HB 10 ML UNIT-DOSE CUPS PO PRN ×2 (06:22→21:37)
[2018-04-20] MEDS: GABAPENTIN 300 MG CAPSULE (FP) PO SCH ×3 (06:22→21:36)
[2018-04-20] MEDS: NICOTINE 21 MG/24 HOURS TOPICAL PATCH TD SCH (10:30)
[2018-04-20] MEDS: ARIPiprazole 5 MG TABLET (FP) PO SCH (10:30)
[2018-04-20] MEDS: BACITRACIN 0.9 GM PACKET TP SCH ×2 (10:30→21:36)
[2018-04-20] MEDS: HYDROCORTISONE 2.5% TOPICAL CREAM 30 GM TUBE TP SCH ×2 (10:30→21:36)
[2018-04-20] MEDS: PANTOPRAZOLE 40 MG TABLET (FP) PO SCH (10:31)
[2018-04-20] MEDS: PRENATAL VITAMINS W/ FOLIC ACID TABLET (FP) PO SCH (10:31)
[2018-04-20] MEDS: MENTHOL/PHENOL 1 EACH UD MM PRN (14:11)
--- NOTE | 2018-04-20 15:15 | PN ---
BHS Progress Note Note: C/O FACIAL RASH. DENIES ITCH AT THIS TIME. PT REPORTS HE GETS THAT WHEN HE STOPS DRINKING ALCOHOL. Vital Signs - 24 hr 04/20/18 04/20/18 04/20/18 00:30 03:30 06:51 Temperature 97.6 F Pulse Rate 55 L Respiratory 18 18 18 Rate Blood Pressure 106/74 SKIN; FACIAL RASH-RED PAPULAR RASH ON CHEEKS AND PUSTULAR RASH ON BEARED AREA. RASH,NONSPECIFIC SKIN ERUPTIONS PLAN:BACITRACIN OINTMENT DIRECTED RE-EVALUATE IF NOT GETTING BETTER.
[2018-04-20] MEDS: traZODone HCL 50 MG TABLET (FP) PO SCH (21:36)
[2018-04-20] MEDS: THIAMINE HCL 100 MG TABLET (FP) PO SCH (21:36)
[2018-04-20] MEDS: P-EPHED 60MG/TRIPROLIDI 2.5MG TABLET PO PRN (21:38)
[2018-04-21] MEDS: GABAPENTIN 300 MG CAPSULE (FP) PO SCH ×3 (06:18→21:41)
[2018-04-21] MEDS: guaiFENesin/D-METHORPHAN HB 10 ML UNIT-DOSE CUPS PO PRN ×2 (06:20→21:43)
[2018-04-21] MEDS: NICOTINE 21 MG/24 HOURS TOPICAL PATCH TD SCH (10:54)
[2018-04-21] MEDS: PRENATAL VITAMINS W/ FOLIC ACID TABLET (FP) PO SCH (10:54)
[2018-04-21] MEDS: HYDROCORTISONE 2.5% TOPICAL CREAM 30 GM TUBE TP SCH ×2 (10:54→21:42)
[2018-04-21] MEDS: BACITRACIN 0.9 GM PACKET TP SCH ×2 (10:54→21:42)
[2018-04-21] MEDS: ARIPiprazole 5 MG TABLET (FP) PO SCH (10:54)
[2018-04-21] MEDS: PANTOPRAZOLE 40 MG TABLET (FP) PO SCH (10:54)
[2018-04-21] MEDS: traZODone HCL 50 MG TABLET (FP) PO SCH (21:41)
[2018-04-21] MEDS: THIAMINE HCL 100 MG TABLET (FP) PO SCH (21:41)
[2018-04-22] MEDS: GABAPENTIN 300 MG CAPSULE (FP) PO SCH ×3 (06:10→21:53)
[2018-04-22] MEDS: guaiFENesin/D-METHORPHAN HB 10 ML UNIT-DOSE CUPS PO PRN ×2 (06:10→21:53)
[2018-04-22] MEDS: ARIPiprazole 5 MG TABLET (FP) PO SCH (10:42)
[2018-04-22] MEDS: BACITRACIN 0.9 GM PACKET TP SCH ×2 (10:42→21:53)
[2018-04-22] MEDS: PRENATAL VITAMINS W/ FOLIC ACID TABLET (FP) PO SCH (10:42)
[2018-04-22] MEDS: PANTOPRAZOLE 40 MG TABLET (FP) PO SCH (10:42)
[2018-04-22] MEDS: NICOTINE 21 MG/24 HOURS TOPICAL PATCH TD SCH (10:42)
[2018-04-22] MEDS: MENTHOL/PHENOL 1 EACH UD MM PRN ×2 (10:44→21:54)
[2018-04-22] MEDS: HYDROCORTISONE 2.5% TOPICAL CREAM 30 GM TUBE TP SCH ×2 (10:44→21:53)
--- NOTE | 2018-04-22 14:20 | PN ---
Psychiatric Progress Note Vital Signs: Vital Signs Period Temp Pulse Resp BP Sys/Salazar Pulse Ox Last 24 Hr 98.0 F-98.0 F 61-61 -18 110-110/74-74 Date of Session: 04/22/18 Chief Complaint:: Discharge Note HPI: Patient addressing Alcohol, Cocaine and Cannabis Dependence comorbid with Nicotine Dependence, Mood Disorder, Substance-Induced Mood Disorder and Substance-Induced Sleep disorder ROS: Hep C, Seizure Disorder Current Medications: Active Medications Generic Name Dose Route Start Last Admin Trade Name Freq PRN Reason Stop Dose Admin Acetaminophen 650 mg 04/05/18 09:39 04/16/18 06:31 Tylenol - PO 650 mg Q4H PRN Administration FEVER Al Hydroxide/Mg Hydroxide 30 ml 04/05/18 09:39 Mylanta Oral Suspension - PO Q6H PRN DYSPEPSIA Aripiprazole 5 mg 04/06/18 10:00 04/22/18 10:42 Abilify PO 5 mg DAILY UNA Administration Bacitracin 0.9 gm 04/20/18 10:00 04/22/18 10:42 Bacitracin - TP 0.9 gm BID UNA Administration Eucalyptus/Menthol/Phenol/Sorbitol 1 each 04/05/18 09:39 04/22/18 10:44 Cepastat Lozenge - MM 1 each Q4H PRN Administration SORE THROAT Gabapentin 300 mg 04/05/18 22:00 04/22/18 06:10 Neurontin - PO 300 mg TID UNA Administration Guaifenesin 10 ml 04/05/18 09:39 04/22/18 06:10 Robitussin Dm - PO 10 ml Q6H PRN Administration COUGH Hydrocortisone 1 applic 04/12/18 12:45 04/22/18 10:44 Anusol 2.5% Hc Cream - TP 1 applic BID UNA Administration Ibuprofen 400 mg 04/05/18 09:39 04/17/18 05:52 Motrin - PO 400 mg Q6H PRN Administration Pain Level 4-6 Loperamide HCl 4 mg 04/05/18 09:39 04/09/18 10:21 Imodium - PO 4 mg Q6H PRN Administration DIARRHEA Magnesium Citrate 300 ml 04/05/18 09:39 Citroma - PO Q48H PRN CONSTIPATION Magnesium Hydroxide 30 ml 04/05/18 09:39 Milk Of Magnesia - PO DAILY PRN CONSTIPATION Nicotine 21 mg 04/05/18 11:45 04/22/18 10:42 Nicoderm Patch - TD 21 mg DAILY UNA Administration Pantoprazole Sodium 40 mg 04/06/18 10:00 04/22/18 10:42 Protonix - PO 40 mg DAILY UNA Administration Multivit/Folic Acid/Iron 1 tab 04/05/18 11:45 04/22/18 10:42 Vitamins (Sjr) - PO 1 tab DAILY UNA Administration Pseudoephedrine/Triprolidine 1 combo 04/05/18 09:39 04/20/18 21:38 Actifed - PO 1 combo TID PRN Administration NASAL CONGESTION Thiamine HCl 100 mg 04/05/18 22:00 04/21/18 21:41 Vitamin B1 - PO 100 mg HS NUA Administration Trazodone HCl 150 mg 04/05/18 22:00 04/21/18 21:41 Desyrel - PO 150 mg HS UNA Administration Current Side Effect: No Lab tests ordered: Yes Lab tests reviewed: Yes Provider note:: Patient will complete this program on 04/23/18. He has met his treatment goals and will continue to address his issues by going to AA/NA. Told display card writer that from his participation in this program, he has learned the importance of making meetings and get a sponsor. He responded well to Trazadone 150 mg po HS, Abilify 5 mg po daily and Gabapentin 300 mg po TID. Scripts for 30 days supply of these medications will be electronically transmitted to [facility] at [address] [place] [address]. He is stable for discharge on 04/23/18 Total face to face time:: 35 Mental Status Exam - Mental Status Exam Alert and Oriented to: Time, Place, Person Cognitive Function: Fair Patient Appearance: Well Groomed Mood: Hopeful, Euthymic Affect: Appropriate Patient Behavior: Cooperative Speech Pattern: Clear Voice Loudness: Normal Thought Process: Intact, Goal Oriented Thought Disorder: Not Present Hallucinations: Denies Suicidal Ideation: Denies Homicidal Ideation: Denies Insight/Judgement: Fair Sleep: Fair Appetite: Good Muscle strength/Tone: Normal Gait/Station: Normal Psychiatric Treatment Plan - Problem List (1) Alcohol dependence Current Visit: Yes (2) Cocaine dependence Current Visit: Yes (3) Cannabis dependence Current Visit: Yes (4) Nicotine dependence Current Visit: Yes (5) Mood disorder Current Visit: Yes (6) Substance induced mood disorder Current Visit: Yes (7) Substance-induced sleep disorder Current Visit: Yes (8) Hepatitis C Current Visit: No Initial treatment plan: Patient will be discharged tomorrow and will be attending AA/NA as he refused formal referral to outpatient treatment
[2018-04-22] MEDS: traZODone HCL 50 MG TABLET (FP) PO SCH (21:52)
[2018-04-22] MEDS: THIAMINE HCL 100 MG TABLET (FP) PO SCH (21:53)
[2018-04-23] MEDS: GABAPENTIN 300 MG CAPSULE (FP) PO SCH (06:24)
[2018-04-23 07:08] VITALS: BP 123/72; PULSE 52; TEMP 97.5
--- NOTE | 2018-04-23 15:37 | PN ---
BHS Progress Note Note: REHAB COMPLETED. PT REPORTS HE HAS PRIMARY CARE AT [facility]. Vital Signs - 24 hr 04/23/18 04/23/18 04/23/18 00:30 03:30 07:07 Temperature 97.5 F L Pulse Rate 52 L Respiratory 18 18 18 Rate Blood Pressure 123/72 NAD PLAN: FOLLOW UP WITH PCP AND AFTERCARE RECOMMENDATION
== END 2018-04-23 09:05 | disposition home or self-care (01) | DRG 772 ==
LOC: YASAS 08:59 → Y5N 10:32
PROVIDERS: ADMIT Psychiatry & Neurology Psychiatry; ATTEND Psychiatry & Neurology Psychiatry
PROC: HZ42ZZZ Group Counseling for Substance Abuse Treatment, Cognitive-Behavioral (ICD-10-PCS; principal; 2018-04-05)
DX: F10.20 Alcohol dependence, uncomplicated (principal); F14.20 Cocaine dependence, uncomplicated; F12.20 Cannabis dependence, uncomplicated; F17.210 Nicotine dependence, cigarettes, uncomplicated; F39 Unspecified mood [affective] disorder; F19.24 Other psychoactive substance dependence with psychoactive substance-induced mood disorder; F19.282 Other psychoactive substance dependence with psychoactive substance-induced sleep disorder; F43.10 Post-traumatic stress disorder, unspecified; F31.9 Bipolar disorder, unspecified; B18.2 Chronic viral hepatitis C; R21 Rash and other nonspecific skin eruption; R50.9 Fever, unspecified; K64.9 Unspecified hemorrhoids; G40.909 Epilepsy, unspecified, not intractable, without status epilepticus; G47.00 Insomnia, unspecified; Z11.9 Encounter for screening for infectious and parasitic diseases, unspecified; Z87.438 Personal history of other diseases of male genital organs; Z59.0 Homelessness
CPT/HCPCS: 36415; 85025

== ENCOUNTER 2018-11-02 14:05 | Inpatient (IN) | payer OTHER ==
[2018-11-02 15:20] VITALS: BMI 29.9
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
[2018-11-02] MEDS ORDERED: diphenhydrAMINE HCL 25 MG CAPSULE (FP) PO PRN (18:13)
[2018-11-02] MEDS ORDERED: CALAMINE 8% TOPICAL LOTION 177 ML BOTTLE TP PRN (18:13)
[2018-11-02] MEDS ORDERED: MAGNESIUM CITRATE 300 ML BOTTLE PO PRN (18:19)
[2018-11-02] MEDS ORDERED: MAGNESIUM HYDROX 2400MG/30ML ORAL SUSPENSION 30 ML CUP PO PRN (18:19)
[2018-11-02] MEDS ORDERED: IBUPROFEN 400 MG TABLET (FP) PO PRN (18:19)
[2018-11-02] MEDS ORDERED: MENTHOL/PHENOL 1 EACH UD MM PRN (18:19)
[2018-11-02] MEDS ORDERED: ACETAMINOPHEN 325 MG TABLET (FP) PO PRN ×2 (18:19)
[2018-11-02] MEDS ORDERED: BISMUTH SUBSALICYLATE 524 MG/30 ML UD PO PRN (18:19)
[2018-11-02] MEDS ORDERED: traZODone HCL 50 MG TABLET (FP) PO PRN (18:19)
[2018-11-02] MEDS ORDERED: NICOTINE POLACRILEX 2 MG GUM BUC PRN (18:19)
[2018-11-02] MEDS ORDERED: MELATONIN 5 MG TABLETS PO PRN (18:19)
[2018-11-02] MEDS ORDERED: MAG HYDROX/AL HYDROX/SIMETH 30 ML UNIT-DOSE CUP PO PRN (18:19)
[2018-11-02] MEDS ORDERED: chlordiazePOXIDE HCL 25 MG CAPSULE PO PRN (18:21)
[2018-11-02] MEDS ORDERED: chlordiazePOXIDE HCL 25 MG CAPSULE PO ONE (19:00)
[2018-11-02] MEDS ORDERED: THIAMINE HCL 100 MG TABLET (FP) PO SCH (22:00)
[2018-11-02] MEDS: chlordiazePOXIDE HCL 25 MG CAPSULE PO SCH (22:37)
[2018-11-03] MEDS: chlordiazePOXIDE HCL 25 MG CAPSULE PO SCH ×3 (05:59→17:35)
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
[2018-11-03] MEDS ORDERED: PRENATAL VITAMINS W/ FOLIC ACID TABLET (FP) PO SCH (10:00)
[2018-11-03 10:09] LABS: HEMATOCRIT 40.7 % (35.4-49); HEMOGLOBIN 13.7 GM/dL (11.7-16.9); MCH 32.4 pg (25.7-33.7); MCHC 33.7 g/dl (32.0-35.9); MEAN CELL VOLUME 96.3 fl (80-96); MEAN PLT VOLUME 8.3 fl (7.5-11.1); PLATELET COUNT 271 K/MM3 (134-434); RBC 4.23 M/mm3 (4.00-5.60); RDW 13.8 % (11.9-15.9); WHITE BLOOD COUNT 5.2 K/mm3 (4.0-10.0)
[2018-11-03 10:24] LABS: BILIRUBIN,TOTAL 1.1 mg/dL (0.2-1); BLOOD UREA NITROGEN 6.7 mg/dL (7-18); CALCIUM 8.8 mg/dL (8.5-10.1); CREATININE 0.8 mg/dL (0.55-1.3); POTASSIUM 3.4 mmol/L (3.5-5.1); TOT PROT 6.7 g/dl (6.4-8.2)
[2018-11-03] MEDS ORDERED: POTASSIUM CHLORIDE TABS 20 MEQ TABLET.ER (FP) PO ONE (13:01)
--- NOTE | 2018-11-03 13:01 | PN ---
S CIWA - CIWA Score Nausea/Vomitin-No Nausea/No Vomiting Muscle Tremors: 1-None Visible, but [place] Anxiety: 4-Mod. Anxious/Guarded Agitation: 2 Paroxysmal Sweats: 1-Minimal Palms Moist Orientation: 0-Oriented Tacttile Disturbances: 0-None Auditory Disturbances: 0-None Visual Disturbances: 0-None Headache: 0-None Present CIWA-Ar Total Score: 8 BHS Progress Note (SOAP) Subjective: PT REPORTS DETOX PROCEEDING WELL. MEDS EFFECTIVE FOR WITHDRAWAL SX. Objective: 11/03/18 12:59 Vital Signs - 24 hr 11/02/18 11/02/18 11/03/18 15:14 21:42 03:30 Temperature 97.3 F L 98.2 F Pulse Rate 58 L 84 Respiratory 18 18 18 Rate Blood Pressure 120/74 139/69 11/03/18 11/03/18 07:53 09:26 Temperature 96.1 F L 98.6 F Pulse Rate 72 67 Respiratory 18 18 Rate Blood Pressure 122/80 113/72 Laboratory Tests 11/03/18 11/03/18 11/03/18 07:50 07:50 07:50 WBC 5.2 RBC 4.23 Hgb 13.7 Hct 40.7 MCV 96.3 H MCH 32.4 MCHC 33.7 RDW 13.8 Plt Count 271 MPV 8.3 Sodium 140 Potassium 3.4 L Chloride 105 Carbon Dioxide 29 Anion Gap 6 L BUN 6.7 L Creatinine 0.8 Est GFR (CKD-EPI)AfAm 127.70 Est GFR (CKD-EPI)NonAf 110.18 Random Glucose 102 Calcium 8.8 Total Bilirubin 1.1 H AST 24 ALT 23 Alkaline Phosphatase 75 Total Protein 6.7 Albumin 3.0 L RPR Titer Nonreactive K+ =3.4 Assessment: 11/03/18 12:59 WITHDRAWAL SX BORDERLINE HYPOKALEMIA Plan: CONTINUE DETOX KDUR 20 MEQ PO DAILY X 4DAYS, FIRST DOSE NOW.
[2018-11-03 17:53] VITALS: BP 120/78; PULSE 90; TEMP 98
--- NOTE | 2018-11-03 18:23 | PN ---
BHS Progress Note Note: Pt with papular, red rash on groin and buttocks- itchy: c/w scabies.
[2018-11-03] MEDS ORDERED: PERMETHRIN 5% TOPICAL CREAM 60 GM TUBE TP ONE (18:45)
--- NOTE | 2018-11-03 19:57 | DS ---
[facility] Detox Discharge Summary Admission Date: 11/02/18 Discharge Date: 11/03/18 - History Pertinent Past History: Pt left AMA. Pt was diagnosed with scabies today and was asked to stay in room after application. Pt became angry that he was not allowed to mingle with the other patients. Pt left. Pt is not on any medical medications - Physical Exam Results Vital Signs: Vital Signs Temperature 98 F 11/03/18 17:50 Pulse Rate 90 11/03/18 17:50 Respiratory Rate 16 11/03/18 17:50 Blood Pressure 120/78 11/03/18 17:50 O2 Sat by Pulse Oximetry (%) - Medication Discharge Medications: Ambulatory Orders Trazodone HCl 150 mg PO HS #30 tablet 04/22/18 Risperidone [Risperdal] 3 mg PO HS 11/02/18 - AMA Did Patient Leave Against Medical Advice: Yes
[2018-11-03] MEDS ORDERED: risperiDONE 3 MG TABLET PO SCH (22:00)
[2018-11-03] MEDS ORDERED: traZODone HCL 100 MG TABLET (FP) PO SCH (22:00)
[2018-11-04] MEDS ORDERED: chlordiazePOXIDE HCL 25 MG CAPSULE PO SCH (05:00)
[2018-11-04] MEDS ORDERED: POTASSIUM CHLORIDE TABS 20 MEQ TABLET.ER (FP) PO SCH (10:00)
[2018-11-05] MEDS ORDERED: chlordiazePOXIDE HCL 10 MG CAPSULE PO PRN
[2018-11-05] MEDS ORDERED: chlordiazePOXIDE HCL 10 MG CAPSULE PO SCH (05:00)
[2018-11-06] MEDS ORDERED: chlordiazePOXIDE HCL 10 MG CAPSULE PO SCH (05:00)
[2018-11-07] MEDS ORDERED: chlordiazePOXIDE HCL 10 MG CAPSULE PO ONE (05:00)
== END 2018-11-03 19:59 | disposition left against medical advice (07) | DRG 770 ==
LOC: YASAS 14:05 → Y6N 18:52
PROVIDERS: ADMIT Surgery; ATTEND Surgery
PROC: HZ2ZZZZ Detoxification Services for Substance Abuse Treatment (ICD-10-PCS; principal; 2018-11-02)
DX: F10.230 Alcohol dependence with withdrawal, uncomplicated (principal); F14.20 Cocaine dependence, uncomplicated; F12.20 Cannabis dependence, uncomplicated; F17.210 Nicotine dependence, cigarettes, uncomplicated; F20.0 Paranoid schizophrenia; F31.9 Bipolar disorder, unspecified; F10.24 Alcohol dependence with alcohol-induced mood disorder; F10.282 Alcohol dependence with alcohol-induced sleep disorder; F43.10 Post-traumatic stress disorder, unspecified; E87.6 Hypokalemia; B18.2 Chronic viral hepatitis C; B86 Scabies; Z86.69 Personal history of other diseases of the nervous system and sense organs; Z52.4 Kidney donor
CPT/HCPCS: 36415; 80053; 85027; 86593